=== PATIENT | male | born 1980 | race Caucasian/White ===

== ENCOUNTER 2022-03-14 14:03 | Outpatient (CLI) | payer OTHER, SELFPAY ==
--- NOTE | 2022-03-14 14:18 | ECG_ITS ---
Measurements Intervals [place] Rate: 79 P: 64 CA: 144 QRS: 52 QRSD: 90 T: 9 QT: 364 QTc: 418 Interpretive Statements SINUS RHYTHM BORDERLINE ST-T WAVE ABNORMALITY- INFERIOR LEADS BORDERLINE ECG NO PREVIOUS ECG AVAILABLE FOR COMPARISON Electronically Signed On 03-14-2022 14:32:36 CDT by Jovanni Smyth D.O.
--- NOTE | 2022-03-20 15:37 | WPDHOLTEREM ---
Holter/Event Monitor Holter/Event Monitor Date of procedure: 03/21/22 Holter/Event Procedure: 48 Hr Holter Monitor Indications: Syncope Conclusion: 1. 48 hour holter monitor on 03/14/22. 2. Underlying rhythm is sinus rhythm. HR range 48-167 bpm; average HR 85 bpm. HR at 167 bpm at 16:27. 3. There are 8 premature supraventricular complexes. No supraventricular tachycardia. 4. There are 2 premature ventricular complexes. No ventricular tachycardia. 5. No sinoatrial or atrioventricular blocks. No significant pauses greater than 2 seconds. 6. Patient reports symptom of face tingling and dizziness from 5:30 pm to 9:00 pm, and at 17:30 it demonstrates sinus rhythm at 85 bpm.
== END 2022-03-14 14:04 | disposition home or self-care (01) ==
LOC: ANHCARD 14:04
PROVIDERS: PCP Family Medicine; Visit Provider Nurse Practitioner Family
DX: R55 Syncope and collapse (principal); R53.83 Other fatigue; R94.31 Abnormal electrocardiogram [ECG] [EKG]
CPT/HCPCS: 93005; 93225; 93226

== ENCOUNTER 2022-03-28 09:25 | Outpatient (CLI) | payer OTHER, SELFPAY ==
[2022-03-28 09:50] LABS: Basophils Absolute Auto 0.1 K/mm3 (0.0-0.1); Basophils Percent Auto 0.8 % (0.2-1.2); Eosinophils Absolute Auto 0.1 K/mm3 (0-0.3); Eosinophils Percent Auto 2.1 % (0-4.4); Immature Granulocyte Absolute 0.01 K/mm3 (0.00-0.031); Immature Granulocyte Percent A 0.2 % (0-0.5); Lymphocytes Absolute Auto 2.31 K/mm3 (0.9-3.2); Lymphocytes Percent Auto 36.4 % (18.3-44.2); Mean Corpuscular HGB Conc 35.6 g/dl (32-36); Mean Corpuscular Hemoglobin 30.1 pg (26-34); Mean Corpuscular Volume 84.6 fl (80-100); Mean Platelet Volume 9.9 fl (7.4-10.4); Monocytes Absolute Auto 0.5 K/mm3 (0.1-0.6); Monocytes Percent Auto 7.7 % (2.6-8.5); Neutrophils Absolute Auto 3.4 K/mm3 (1.3-6.7); Neutrophils Percent Auto 52.8 % (45.5-73.1); Platelet Count Result 249 k/mm3 (150-375); Red Blood Count 5.32 M/mm3 (4.6-6.20); Red Cell Distribution Width 12.5 % (11.5-14.5); White Blood Count 6.3 K/mm3 (4.5-10.0)
[2022-03-28 10:06] LABS: Rheumatoid Factor < 8.6 IU/ML (<12)
[2022-03-28 10:08] LABS: Anion Gap 13 mmol/L (8-16); Blood Urea Nitrogen 19 mg/dL (9-20); CRP < 0.5 mg/dL (<1.0); Calcium 9.6 mg/dL (8.4-10.2); Carbon Dioxide 28 mmol/L (22-30); Chloride 99 mmol/L (98-107); Estimated Glomerular Filt Rate > 60; Glucose 100 mg/dL (65-110); Magnesium 2.2 mg/dL (1.6-2.3); Potassium 3.9 mmol/L (3.4-5.0); Sodium 140 mmol/L (137-145)
[2022-03-28 10:52] LABS: Erythrocyte Sedimentation Rate 14 mm/hr (0-20)
== END 2022-03-28 09:26 | disposition home or self-care (01) ==
LOC: ANHLAB 09:26
PROVIDERS: PCP Family Medicine; Visit Provider Nurse Practitioner Family
DX: R53.83 Other fatigue (principal); M25.50 Pain in unspecified joint
CPT/HCPCS: 36415; 80048; 83735; 84443; 85025; 85652; 86038; 86140; 86430

== ENCOUNTER 2022-03-29 10:07 | Outpatient (CLI) | payer OTHER, SELFPAY ==
--- NOTE | ~2022-03-29 | XR_ITS ---
XR hip RT min 2V DATE: 03/29/2022 10:53 INDICATION: Right hip pain TECHNIQUE: AP and lateral views COMPARISON: None FINDINGS: No fracture or dislocation, avascular necrosis or bone destruction of the right hip. The pu bic symphysis and right sacroiliac joint appear normal. Right hip joint space is well preserved. IMPRESSION: Negative right hip Reviewed, dictated and finalized at location B. TAL FORENSIC ANALYST IMPRESSION: Negative right hip
--- NOTE | ~2022-03-29 | XR_ITS ---
EXAMINATION: XR lumbar spine 2-3V DATE: 03/29/2022 10:53 INDICATION: Low back pain TECHNIQUE: Anteroposterior and lateral views of the lumbar spine, and cone-down lateral view of the l umbosacral junction were obtained. COMPARISON: None. FINDINGS: Bone alignment is normal. There is no fracture. The vertebral body heights are normal. Ther e is mild facet joint osteoarthritis of the lower lumbar spine. The intervertebral disc space heights are maintained. Phleboliths are noted in the pelvis. The bowel gas pattern is normal. IMPRESSION: 1. Mild lumbar spondylosis without acute findings. Reviewed, dictated and finalized at location F. TOOLS REPAIRER
--- NOTE | ~2022-03-29 | XR_ITS ---
EXAMINATION: XR hand BI arthritis min 3V DATE: 03/29/2022 10:53 INDICATION: Pain in unspecified hand. TECHNIQUE: 4 views of right hand and 4 views of left hand on a total of 7 radiographs were obtained. COMPARISON: None. FINDINGS: RIGHT HAND: Bone alignment is normal. No fracture. There is mild osteoarthritis of third metacarpopha langeal joint and second and third distal interphalangeal joints. LEFT HAND: Bone alignment is normal. No fracture. There is mild osteoarthritis of first interphalange al joint. IMPRESSION: 1. Mild polyarticular osteoarthritis. Reviewed, dictated and finalized at location A. NG CAR CONDUCTOR
== END 2022-03-29 10:08 | disposition home or self-care (01) ==
PROVIDERS: PCP Family Medicine; Visit Provider Nurse Practitioner Family
DX: M25.559 Pain in unspecified hip (principal); M19.041 Primary osteoarthritis, right hand; M19.042 Primary osteoarthritis, left hand; M47.896 Other spondylosis, lumbar region
CPT/HCPCS: 72100; 73130; 73502

== ENCOUNTER 2022-12-04 08:06 | Outpatient (CLI) | payer OTHER, SELFPAY ==
[2022-12-04 08:29] LABS: Basophils Percent Auto 0.8 % (0.2-1.2); Eosinophils Absolute Auto 0.1 K/mm3 (0-0.3); Eosinophils Percent Auto 1.9 % (0-4.4); Hematocrit 42.3 % (42.0-52.0); Hemoglobin 14.4 g/dL (14.0-18.0); Immature Granulocyte Absolute 0.01 K/mm3 (0.00-0.031); Immature Granulocyte Percent A 0.2 % (0-0.5); Lymphocytes Absolute Auto 2.18 K/mm3 (0.9-3.2); Lymphocytes Percent Auto 41.6 % (18.3-44.2); Mean Corpuscular Hemoglobin 29.9 pg (26-34); Mean Corpuscular Volume 87.9 fl (80-100); Mean Platelet Volume 9.6 fl (7.4-10.4); Monocytes Absolute Auto 0.3 K/mm3 (0.1-0.6); Monocytes Percent Auto 6.3 % (2.6-8.5); Neutrophils Absolute Auto 2.6 K/mm3 (1.3-6.7); Neutrophils Percent Auto 49.2 % (45.5-73.1); Platelet Count Result 206 k/mm3 (150-375); Red Blood Count 4.81 M/mm3 (4.6-6.20); Red Cell Distribution Width 12.6 % (11.5-14.5); White Blood Count 5.2 K/mm3 (4.5-10.0)
[2022-12-04 09:52] LABS: Alanine Aminotransferase 36 U/L (6-50); Albumin Level 4.6 g/dL (3.5-5.1); Alkaline Phosphatase 74 U/L (38-126); Anion Gap 8 mmol/L (8-16); Aspartate Amino Transferase 30 U/L (17-59); Bilirubin,Total 0.7 mg/dL (0.2-1.3); Blood Urea Nitrogen 15 mg/dL (9-20); Calcium 9.1 mg/dL (8.4-10.2); Carbon Dioxide 28 mmol/L (22-30); Chloride 103 mmol/L (98-107); Cholesterol 208 mg/dL (0-200); Estimated Glomerular Filt Rate > 60; Glucose 101 mg/dL (65-110); HDL Direct 36 mg/dL; Potassium 3.6 mmol/L (3.4-5.0); Sodium 139 mmol/L (137-145); Triglycerides 127 mg/dL (<150)
[2022-12-04 10:04] LABS: LDL Cholesterol Direct 117 mg/dL
[2022-12-04 10:23] LABS: Prostate Specific Antigen 0.4 ng/mL (< OR = 4.0)
[2022-12-07 17:27] LABS: Testosterone Free 49.9 pg/mL (35.0-155.0); Testosterone Total 299 ng/dL (250-1100)
[2022-12-07 22:23] LABS: Anti Cyclic Citrullinated Pept <16 Units (<20)
== END 2022-12-04 08:07 | disposition home or self-care (01) ==
PROVIDERS: PCP Family Medicine; Visit Provider Internal Medicine
DX: L40.50 Arthropathic psoriasis, unspecified (principal); L40.9 Psoriasis, unspecified; M19.90 Unspecified osteoarthritis, unspecified site; M25.551 Pain in right hip; M25.552 Pain in left hip; M54.9 Dorsalgia, unspecified; F41.9 Anxiety disorder, unspecified; R68.82 Decreased libido; Z12.5 Encounter for screening for malignant neoplasm of prostate; Z13.220 Encounter for screening for lipoid disorders
CPT/HCPCS: 36415; 80053; 80061; 84153; 84402; 84403; 84443; 85025; 86200; 86481; 86706; 86803; 87340; G0103

== ENCOUNTER 2022-12-05 07:29 | Outpatient (CLI) | payer OTHER, SELFPAY | END 2022-12-05 07:30 | disposition home or self-care (01) | LOC: ANHIMG 07:31 | PROVIDERS: PCP Family Medicine; Visit Provider Family Medicine | DX: M25.561 Pain in right knee (principal) | CPT/HCPCS: 73564 ==

== ENCOUNTER 2023-01-01 07:41 | Outpatient (CLI) | payer OTHER, SELFPAY ==
[2023-01-01 08:06] LABS: Basophils Percent Auto 0.6 % (0.2-1.2); Eosinophils Absolute Auto 0.2 K/mm3 (0-0.3); Hematocrit 42.9 % (42.0-52.0); Hemoglobin 14.4 g/dL (14.0-18.0); Immature Granulocyte Absolute 0.02 K/mm3 (0.00-0.031); Immature Granulocyte Percent A 0.4 % (0-0.5); Lymphocytes Absolute Auto 2.11 K/mm3 (0.9-3.2); Lymphocytes Percent Auto 39.4 % (18.3-44.2); Mean Corpuscular HGB Conc 33.6 g/dl (32-36); Mean Corpuscular Hemoglobin 30.3 pg (26-34); Mean Corpuscular Volume 90.1 fl (80-100); Mean Platelet Volume 9.9 fl (7.4-10.4); Monocytes Absolute Auto 0.4 K/mm3 (0.1-0.6); Monocytes Percent Auto 7.3 % (2.6-8.5); Neutrophils Absolute Auto 2.7 K/mm3 (1.3-6.7); Neutrophils Percent Auto 49.3 % (45.5-73.1); Platelet Count Result 205 k/mm3 (150-375); Red Blood Count 4.76 M/mm3 (4.6-6.20); Red Cell Distribution Width 12.6 % (11.5-14.5); White Blood Count 5.4 K/mm3 (4.5-10.0)
[2023-01-01 08:27] LABS: Anion Gap 5 mmol/L (8-16); Blood Urea Nitrogen 13 mg/dL (9-20); Calcium 8.9 mg/dL (8.4-10.2); Carbon Dioxide 29 mmol/L (22-30); Chloride 103 mmol/L (98-107); Estimated Glomerular Filt Rate > 60; Glucose 76 mg/dL (65-110); Potassium 3.8 mmol/L (3.4-5.0); Sodium 137 mmol/L (137-145); Uric Acid 5.8 mg/dL (3.5-8.5)
[2023-01-01 08:57] LABS: Erythrocyte Sedimentation Rate 12 mm/hr (0-20)
== END 2023-01-01 07:42 | disposition home or self-care (01) ==
LOC: ANHLAB 07:42
PROVIDERS: PCP Family Medicine; Visit Provider Family Medicine
DX: M25.469 Effusion, unspecified knee (principal); L40.50 Arthropathic psoriasis, unspecified
CPT/HCPCS: 36415; 80048; 84550; 85025; 85652

== ENCOUNTER 2023-05-14 10:29 | Outpatient (CLI) | payer OTHER, SELFPAY ==
--- NOTE | ~2023-05-14 | XR_ITS ---
Right Knee Technique: AP, lateral, and sunrise views were obtained. Clinical History: Pain Findings: No fracture or dislocation is seen. Osseous alignment is anatomic. Joint spaces are preserv ed without degenerative or erosive change. Soft tissues are unremarkable. No joint effusion is seen. Impression: Unremarkable right knee radiographs. Reviewed, dictated and finalized at location . ICAL OFFICE TECHNICIAN Impression: Unremarkable right knee radiographs.
== END 2023-05-14 10:30 | disposition home or self-care (01) ==
PROVIDERS: PCP Family Medicine; Visit Provider Orthopaedic Surgery
DX: M25.469 Effusion, unspecified knee (principal); M25.561 Pain in right knee
CPT/HCPCS: 73564

== ENCOUNTER 2023-06-17 07:30 | Outpatient (CLI) | payer OTHER, SELFPAY ==
[2023-06-17 07:54] LABS: Hemoglobin 15.1 g/dL (14.0-18.0)
[2023-06-21 17:56] LABS: Testosterone Free 98.1 pg/mL (35.0-155.0); Testosterone Total 467 ng/dL (250-1100)
== END 2023-06-17 07:31 | disposition home or self-care (01) ==
LOC: ANHLAB 07:31
PROVIDERS: PCP Family Medicine; Visit Provider Family Medicine
DX: R79.89 Other specified abnormal findings of blood chemistry (principal)
CPT/HCPCS: 36415; 84402; 84403; 85014; 85018

== ENCOUNTER 2023-11-18 11:50 | Outpatient (CLI) | payer OTHER, SELFPAY ==
[2023-11-23 10:54] LABS: Testosterone Free 28.6 pg/mL (35.0-155.0); Testosterone Total 205 ng/dL (250-1100)
== END 2023-11-18 11:51 | disposition home or self-care (01) ==
LOC: ANHLAB 11:51
PROVIDERS: PCP Family Medicine; Visit Provider Nurse Practitioner Family
DX: R79.89 Other specified abnormal findings of blood chemistry (principal)
CPT/HCPCS: 36415; 84402; 84403

== ENCOUNTER 2023-12-23 08:07 | Outpatient (CLI) | payer OTHER, SELFPAY ==
[2023-12-23 08:27] LABS: Hematocrit 44.1 % (42.0-52.0); Hemoglobin 15.4 g/dL (14.0-18.0)
[2023-12-28 19:29] LABS: Testosterone Free 193.5 pg/mL (35.0-155.0); Testosterone Total 1027 ng/dL (250-1100)
== END 2023-12-23 08:08 | disposition home or self-care (01) ==
PROVIDERS: PCP Family Medicine; Visit Provider Nurse Practitioner Family
DX: R79.89 Other specified abnormal findings of blood chemistry (principal)
CPT/HCPCS: 36415; 84402; 84403; 85014; 85018

== ENCOUNTER 2024-02-03 12:33 | Outpatient (CLI) | payer OTHER, SELFPAY | END 2024-02-03 12:34 | disposition home or self-care (01) | LOC: ANHIMG 12:34 | PROVIDERS: PCP Family Medicine; Visit Provider Physician Assistant Medical | DX: M79.671 Pain in right foot (principal); M79.672 Pain in left foot; G89.29 Other chronic pain; R79.89 Other specified abnormal findings of blood chemistry; L40.50 Arthropathic psoriasis, unspecified; Z12.5 Encounter for screening for malignant neoplasm of prostate | CPT/HCPCS: 73630 ==

== ENCOUNTER 2024-07-02 | Observation (INO) | payer OTHER, SELFPAY ==
[2024-07-02] VITALS (19 sets, daily range): BP systolic 114–138; BP diastolic 59–94; PULSE 81–203; RESP 15–30; TEMP 36.6–37.2; O2SAT 97–100; BMI 24.6
--- NOTE | 2024-07-02 | ECHO_ITS ---
Patient Info Name: Tio Martínez Age: 44 years : 1980 Gender: Male Ht: 69 in Wt: 167 lbs BSA: 1.93 m2 HR: 90 bpm BP: 125 / 88 mmHg Technical Quality: Fair Exam Date: 07/02/2024 8:41 AM Exam Location: Echo Lab Patient Status: Outpatient Admit Date: 07/02/2024 Staff Ordering Physician: Holden Menjivar APRN Guide Dog Instructor: Dhruv Conroy RDCS Attending Provider: Lanie Vicente MD Referring Physician: Otto NAVARRO; Exam Type: CA echo doppler color flow Study Info Indications - AFIB RVR Complete two-dimensional, color flow and Doppler transthoracic echocardiogram is performed. Summary 1. Complete two-dimensional, color flow and Doppler transthoracic echocardiogram is performed. 2. There is normal biventricular size and systolic function. 3. There is no significant valvular disease. 4. There is normal biatrial size. Left Ventricle The left ventricle is normal in size and systolic function. The left ventricular ejection fraction is visually estimated to be 60-65%. Right Ventricle The right ventricle is normal in size and systolic function. Left Atria The left atrium is normal size. Right Atria The right atrium is normal size. Atrial Septum The atrial septum visually appears intact. Aortic Valve The aortic valve is probably trileaflet and opens well. There is no aortic regurgitation. Pulmonic Valve The pulmonic valve is grossly normal. There is no color Doppler evidence of pulmonic valve regurgitation. Mitral Valve The mitral valve is normal. There is no mitral regurgitation. Tricuspid Valve The tricuspid valve is normal. There is no tricuspid regurgitation. Pericardium/Pleural Pericardium is normal in appearance with no evidence for significant pericardial effusion. Inferior Vena Cava Normal inferior vena cava with >50% collapse upon inspiration consistent with normal right atrial pressure, 3 mmHg. Aorta The aortic root at the level of the sinus of Valsalva measures 3.2 cm in diameter. Left Ventricular Outflow Tract Name Value Normal LVOT 2D LVOT Diameter 1.8 cm LVOT Doppler LVOT Peak Gradient 4 mmHg LVOT Mean Gradient 3 mmHg LVOT VTI 22 cm LVOT VTI/AV VTI Ratio 1.0 LVOT Stroke Volume 56 ml LVOT CO 11.7 l/min LVOT CI 6.1 l/min/m2 Pulmonic Valve Name Value Normal RVOT Doppler RVOT Peak Gradient 2 mmHg PV Doppler PV Peak Gradient 3 mmHg Mitral Valve Name Value Normal MV Doppler MV Decel Powell 335 cm/s2 MV PHT 47 ms MV Area (PHT) 4.7 cm2 4.0-5.0 MV Diastolic Function MV E Peak Velocity 54 cm/s MV A Peak Velocity 56 cm/s MV E/A 1.0 MV Decel Time 160 ms MV Annular TDI MV E/e' (Septal) 5.6 <=8.0 MV E/e' (Lateral) 3.5 <=8.0 MV E/e' (Average) 4.5 Tricuspid Valve Name Value Normal Estimated PAP/RSVP RA Pressure 3 mmHg <=5 Aorta Name Value Normal Ascending Aorta Ao Root Diameter (MM) 2.9 cm Ao Root Diam Index (MM) 1.5 cm/m2 Aortic Valve Name Value Normal AV Doppler AV Peak Velocity 126 cm/s AV Peak Gradient 6 mmHg AV Mean Gradient 4 mmHg AV VTI 23 cm AV Area (Cont Eq VTI) 2.5 cm2 >=3.0 AV Area (Cont Eq Yared) 2.0 cm2 AV Regurgitation 2D LVOT Area 2.6 cm2 Ventricles Name Value Normal LV Dimensions 2D/MM IVS Diastolic Thickness (2D) 1.3 cm 0.6-1.0 LVID Diastole (2D) 3.6 cm 4.2-5.8 LVIW Diastolic Thickness (2D) 1.1 cm 0.6-1.0 LVID Systole (2D) 2.5 cm 2.5-4.0 LVOT Diameter 1.8 cm LV Mass (2D Cubed) 145.28 g 88.00-224.00 LV Mass Index (2D Cubed) 75 g/m2 49-115 Relative Wall Thickness (2D) 0.61 LV Fractional Shortening/Ejection Fraction 2D/MM LV Fractional Shortening (2D) 30 % 25-43 LV EF (2D Teicholz) 58 % 52-72 LV Diastolic Volume (4C MOD) 60 ml LV EF (4C MOD) 49 % LV Diastolic Volume (2C MOD) 66 ml LV EF (2C MOD) 44 % LV Diastolic Volume (BP MOD) 63 ml 62-150 LV Diastolic Volume Index (BP MOD) 33 ml/m2 34-74 LV Systolic Volume (BP MOD) 35 ml 21-61 LV Systolic Volume Index (BP MOD) 18 ml/m2 11-31 LV EF (BP MOD) 45 % 52-72 LV Diastolic Length (4C) 7.7 cm LV Systolic Length (4C) 6.5 cm LV Stroke Volume (4C MOD) 29 ml Atria Name Value Normal LA Dimensions LA Dimension (MM) 3.6 cm 3.0-4.1 LA Volume (4C A-L) 26 ml LA Volume (BP A-L) 31 ml RA Dimensions RA Area (4C) 11.7 cm2 <=18.0 Report Signatures
--- NOTE | 2024-07-02 00:06 | ECG_ITS ---
Test Date: 2024-07-02 00:06:58 Measurements Intervals [place] Rate: 214 P: 0 CO: 0 QRS: 38 QRSD: 89 T: -85 QT: 186 QTc: 351 Interpretive Statements ATRIAL FIBRILLATION WITH RAPID VENTRICULAR RESPONSE MARKED ST DEPRESSION, CONSIDER SUBENDOCARDIAL INJURY OR RATE RELATED BASELINE ARTIFACT- I, III, AVL, AVF ABNORMAL ECG No previous ECG available for comparison Electronically Signed On 07-02-2024 05:49:42 RETAIL PRODUCT DEMO SPECIALIST by Jovanni Smyth D.O.
[2024-07-02] MEDS: dilTIAZem HCl INJ 25 MG/5 ML VIAL 10 MG IV PUSH (00:07)
[2024-07-02] MEDS: dilTIAZem HCl INJ 25 MG/5 ML VIAL 15 MG IV PUSH (00:10)
--- NOTE | 2024-07-02 00:13 | ED.ARRPALP ---
HPI - Arrhythmia/Palpitations General Chief Complaint: Arrhythmia/Palpitations Stated Complaint: CHEST DISCOMFORT, IN SVT Time Seen by Provider: 07/02/24 00:13 Source: patient Mode of arrival: EMS Limitations: no limitations History of Present Illness HPI narrative: This is a 44-year-old male who presents to the ED via EMS for chief complaint of heart palpitations beginning just prior to arrival around 11pm. Patient states that he just finished eating dinner and was eating ice cream when he started to feel uncomfortable racing heart. States that he has had panic attacks with anxiety in the past but this is much worse and feels different. Denies preceding illness. Denies chest pain. States he feels little dizzy but otherwise has been asymptomatic. Admits to cannabis use this evening, however denies alcohol or other substance use. 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 He does state that he used to be a heavier drinker in the past. Related Data Home Medications ?Medication ?Instructions ?Recorded ?Confirmed ?Last Taken ?Type acetaminophen 500 mg tablet 500 mg PO Q6H 09/11/22 07/02/24 Unknown History (Tylenol Extra Strength) Allergies Allergy/AdvReac Type Severity Reaction Status Date / Time No Known Allergies Allergy Verified 07/02/24 00:20 Review of Systems Review of Systems: All systems as dictated in HPI [facility] Past Medical History Medical History Back pain Bilateral hip pain BMI 24.0-24.9, adult Encounter for screening for other viral diseases Low libido Low testosterone in male Psoriatic arthritis Right ACL tear Right knee pain Scalp psoriasis Swelling of knee Surgical History Surgical History H/O elbow surgery H/O knee surgery Family History Family History Father Hypertension Hyperlipemia Malignant neoplasm of prostate Mother Cerebrovascular accident Skin cancer Social History Social History Smoking status: Former smoker Tobacco type: e-cigarettes/vaping Second hand tobacco smoke exposure: Yes Smoking end date: 05/13/12 Alcohol intake: former Substance use: never Substance use type: does not use Do You Feel Safe in your Home?: Yes Lack of Transportation: No Lack of Food: Never True Current Housing: I Have Housing Concerned About Future Housing: No Difficulty Paying Gas/Electric Bills: No Difficulty Paying for Meds: No Currently Unemployed: YES Education: High School Diploma/GED Difficulty w/ Childcare or Family Care: No Living arrangements: with family Occupation/Education: occupation 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 Gender identity (if verbalized by the patient): Male Exam Narrative: GENERAL: Appears uncomfortable. Answering questions appropriately HEAD: Normocephalic, atraumatic. EYES: PERRLA and EOMI. ENT: Nares clear, no rhinorrhea or epistaxis. Mucous membranes moist. Oropharynx without tonsillar hypertrophy exudate or other lesions. NECK: Supple. No adenopathy or masses. CHEST: No respiratory distress. Clear to auscultation. No wheezes rales or rhonchi HEART: Tachycardic. Regular rhythm.. No murmur heard. Normal peripheral pulses. ABDOMEN: Soft, nontender, nondistended, normal active bowel sounds. MSK: Normal range of motion. No edema. SKIN: Warm, dry, no rash. NEURO: Alert and oriented x4. No focal deficits. PSYCH: Normal mood and affect. Course Reevaluation(s) Reevaluation #1: Patient is feeling much better s/p cardioversion. He is amenable to being admitted to the hospital for observation Date: 07/02/24 Time: 01:32 Procedures Procedural Sedation Procedural Sedation #1: Procedural Sedation Date: 07/02/24 Procedural Sedation Time: 01:05 Procedure: Electrical cardioversion Provider Performed: sedation and procedure Informed Consent Obtained: yes Equipment in Room: bag and mask, capnography, secured entrance monitor, crash cart, oxygen, pulse oximeter and suction Plan for Sedation: moderate sedation ASA Class: I Mallampati Classification: class II NPO Status: last solid food (hours ago) Explanation to Patient/Family: Risk/Benefits/Alternatives and Pt/Family agreed with plan Pt. Educated on Procedural Sedation: Yes Re-evaluated immediately prior: Yes Preparation: secured entrance monitor applied, pulse oximeter, capnometry used, supplemental O2 applied, reversal agents at bedside, suction/airway equipment at bedside and IV secured IV Etomidate dose (mg): 8 Patient Tolerated Procedure: well and no complications Complications: none Total Sedation Time (min): 2 MDM - Arrhythmia/Palpitations MDM Narrative Medical decision making narrative: This is a 44-year-old male who presents to the ED for heart palpitations. He arrives via EMS with a heart rate of 200 and possible SVT so he was treated with vagal maneuvers, 6 mg of Adenocard, followed by 12 mg Adenocard with no success. Pressure is stable in the 150s. Patient was given 10 mg push followed by 15 mg push of diltiazem with decent response so diltiazem drip was started here in the ED. Patient continued to have heart rates climbing into the 160s, 170s. Pressure remains stable in the 130s, however he is is still quite symptomatic. He is feeling lightheaded and dizzy. Discussion with patient regarding continuing medical therapy versus synchronized cardioversion. We discussed that his medical history and history of present illness makes him a good candidate for cardioversion for new onset atrial fibrillation today. He was given 8 mg of etomidate for procedural sedation and then this successful electrical cardioversion at 100 rules. Repeat ECG shows sinus rhythm. Shared decision making regarding disposition. Patient feels comfortable being admitted for observation. He will be admitted to IMU after discussing case with hospitalist HORTICULTURAL FARM MANAGER. SATHISH?DS?-VASc Score for Atrial Fibrillation Stroke Risk from [email or web address] on 07/02/2024 All calculations should be rechecked by clinician prior to use RESULT SUMMARY: 0 points Stroke risk was 0.2% per year in >90,000 patients (the [place] Atrial Fibrillation Cohort Study) and 0.3% risk of stroke/TIA/systemic embolism. INPUTS: Age ?> 0 = <65 Sex ?> 0 = Male CHF history ?> 0 = No Hypertension history ?> 0 = No Stroke/TIA/thromboembolism history ?> 0 = No Vascular disease history (prior RI, peripheral artery disease, or aortic plaque) ?> 0 = No Diabetes history ?> 0 = No ECG Data EKG #1: ECG completion date: 07/02/24 ECG completion time: 00:06 Prior ECG tracings: not available for review Interpretation: Atrial fibrillation with RVR Rate 214 Narrow complex QRS EKG #2: ECG completion date: 07/02/24 ECG completion time: 01:19 Prior ECG tracings: not available for review Interpretation: Sinus tachycardia rate [address] deviations or signs of acute ischemia Discharge Plan Discharge Clinical Impression: Atrial fibrillation, new onset Patient Disposition: Still a Patient Condition: Stable Patient Language: French Prescriptions: No Action celecoxib [Celebrex] 200 mg capsule 200 mg PO BID Qty: 60 6RF acetaminophen [Tylenol Extra Strength] 500 mg tablet 500 mg PO Q6H duloxetine 60 mg capsule,delayed release(DR/EC) 60 mg PO DAILY Qty: 90 0RF trazodone 50 mg tablet See Rx Instructions .ROUTE .COMPLEX Qty: 90 3RF Dose Instruction: TAKE 1 TABLET BY MOUTH EVERY DAY AT BEDTIME NEEDED FOR INSOMNIA Rx Instructions: TAKE 1 TABLET BY MOUTH EVERY DAY AT BEDTIME NEEDED FOR INSOMNIA testosterone cypionate 200 mg/mL oil 150 mg IM WEEKLY Qty: 10 0RF Follow-up/Referrals: Donn Lindquist MD [Primary Care Provider] - Cardioversion Cardioversion Date of procedure: 07/02/24 Procedure: Electrical cardioversion Pre-op diagnosis: Atrial fibrillation Post-op diagnosis: Other (Normal sinus rhythm) Indications: Increasingly symptomatic, new onset atrial fibrillation Description of procedure: Synchronized cardioversion at 100 rules Sedation: 8 mg of etomidate AMG Billing for Cardioversion: Cardioversion
[2024-07-02] MEDS: dilTIAZem 100 MG/100 ML 100 MG/100 ML BAG IV CONT (00:16)
[2024-07-02] MEDS: SODIUM CHLORIDE 0.9% IV 1,000 ML 999 ML IV CONT ×2 (00:21→00:52)
--- OUTSIDE RECORDS SUMMARY | 2024-07-02 00:23 | XMS_ITS | Encounter Summary ---
Author Organization [employer] Address 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
--- OUTSIDE RECORDS SUMMARY | 2024-07-02 00:23 | XMS_ITS | Referral Summary ---
Author Organization [facility] [address] Address [address] [place] [id number] Care Team Providers Care Alarm Field Technician Name Role Phone Josh Lion MD Primary Care Provider [phone] Allergies No known active allergies Medications ibuprofen (ADVIL,MOTRIN) 200 mg tab/cap Take by mouth every 6 (six) hours as needed Active acetaminophen (TYLENOL) 500 mg tablet Take 500 mg by mouth every 6 (six) hours as needed Active melatonin 10 mg tablet Active protein supplement liquid Take by mouth Active doxylamine (UNISOM) 25 mg tablet Take 0.5 tablets (12.5 mg total) by mouth nightly as needed for sleep (anxiety) 30 tablet 11/20/2021 Active traZODone (DESYREL) 50 mg tabletIndicatio ns:Primary insomnia TAKE 1 TABLET(50 MG) BY MOUTH EVERY NIGHT NEEDED FOR SLEEP 30 tablet 2 12/27/2021 Active LORazepam (ATIVAN) 0.5 mg tabletIndicatio ns:Panic disorder Take 1 tablet (0.5 mg total) by mouth 3 (three) times a day as needed for anxiety (panic) 10 tablet 01/22/2022 Active naproxen (ALEVE) 220 mg tablet Take by mouth 2 (two) times a day with meals Active escitalopram (LEXAPRO) 10 mg tabletIndicatio ns:Panic disorder TAKE 1 TABLET(10 MG) BY MOUTH DAILY 30 tablet 3 05/29/2022 Active Active Problems Problem Noted Date Diagnosed Date Encounter to establish care 05/22/2021 Assessment & Plan (05/27/2021 12:32 PM CUB REPORTER): A initial well visit to establish care has been performed today. Tio Martínez is up to date on screening tests. He is in need of None- no screening indicated at this time- these have been ordered. He is not up to date on needed preventative vaccinations; He is in need of Covid-19 (2 of 2). These have been ordered/arranged unless otherwise indicated. Trazodone trial Hold doxylamine, diphenhydramine Continue melatonin Labs as ordered Keflex course for paronychia; see handout as well Paronychia of index finger 05/22/2021 Panic disorder Assessment & Plan (02/24/2022 2:30 PM CDT): Will plan to get set up with counselor Continuing Lexapro, PRN Ativan-- I am hopeful to decrease the need for the benzo (Ativan) Trazodone continues as well Assessment & Plan (12/22/2021 10:56 AM CDT): Recommended trial of Lexapro Will continue PRN ativan, as long as usage does not increase markedly Continuing trazodone. With it and lexapro, there is a low risk of serotonin syndrome, we will watch for. Immunizations Immunization Administration Dates Next Due Influenza, Quadrivalent, Spl it, Intramuscular 03/28/2018 Influenza, Unspecified 02/19/2022(Deferr ed: Patient Refused),06/19/2021(Deferred: Patient Refused),05/13/2021(Deferred: Patient Refused),05/13/2020(Deferred: Patient Refused) Tdap 2018 Social History Tobacco Use Types Packs/Day Years Used Date Smoking Tobacco: Former Cigarettes 1 2019 Vaping Smokeless Tobacco: Never Tobacco Cessation:Counseling Given: Yes Humiliation, Afraid, Rape, and Kick questionnair e Answer Date Recorded Within the last year, have y ou been afraid of your partner or ex-partner? No 05/22/2021 Within the last year, have y ou been humiliated or emotionally abused in other ways by your partner or ex-partner? No Within the last year, have y ou been kicked, hit, slapped, or otherwise physically hurt by your partner or ex-partner? No 05/22/2021 Within the last year, have y ou been raped or forced to have any kind of sexual activity by your partner or ex-partner? No 05/22/2021 AUDIT-C Answer Date Recorded Frequency of Alcohol Consumption Not on file 11/20/2021 Q2: How many drinks containi ng alcohol do you have on a typical day when you are drinking? Patient does not drink Frequency of Binge Drinking Not on file 11/10 PHQ-2 Answer Date Recorded PHQ-2 Total Score (If total score is 3 or more points, staff should administer the PHQ-9) 0 02/19/2022 [facility] - Occupational Stress Questionnaire Answer Date Recorded Do you feel stress - tense, restless, nervous, or anxious, or unable to sleep at night because your mind is troubled all the time - these days? Only a little 05/22/2021 Exercise Vital Sign Answer Date Recorde d On average, how many days pe r week do you engage in moderate to strenuous exercise (like a brisk walk)? 0 days Minutes of Exercise per Session Not on file 05/22/2021 Personal Safety Answer Date Recorded Getting School Help Needed Not on file 07/13 Education Answer Date Recorded What is the highest level of school you have completed or the highest degree you have received? 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) Not on file Not on file Not on file Last Filed Vital Signs Vital Sign Reading Time Taken Comments Blood Pressure 116/76 02/19/2022 10:17 AM CDT Pulse 75 02/19/2022 10:17 AM CDT Temperature 36.9 C (98.4 F) 02/19/2022 10:17 AM CDT Respiratory Rate 18 02/19/2022 10:17 AM CDT Oxygen Saturation 99% 02/19/2022 10:17 AM CDT Inhaled Oxygen Concentration - - Weight 75.8 kg (167 lb) 02/19/2022 10:17 AM CDT Height 180.3 cm (5' 11 ) 02/19/2022 10:17 AM CDT Body Mass Index 23.29 02/19/2022 10:17 AM CDT Plan of Treatment Not on file Insurance Care Teams Alarm Field Technician Relationship Specialty Start Date End Date Josh Lion MD PCP - General Family Medicine 05/22/21
--- OUTSIDE RECORDS SUMMARY | 2024-07-02 00:23 | XMS_ITS | Clinical Summary ---
Author Organization [facility] [address] Address [address] [place] [id number] Care Team Providers Care Media Relations Coordinator Name Role Phone Josh Lion MD Primary Care Provider [phone] Allergies No known active allergies Medications ibuprofen [...] 05/22/2021 Assessment & Plan (05/27/2021 12:32 PM QUALITY ASSURANCE LAB TECHNICIAN): A initial well visit to establish care [...] Refused),05/13/2021(Deferred: Patient Refused),05/13/2020(Deferred: Patient Refused) Tdap 2018 Surgical History Surgery Date Site/Laterality Comments KNEE SURGERY 05/13/2009 - 05/12/2010 Left ACL, MCL, tibial fracture ORIF RADIAL HEAD / NECK FRACTURE 05/13/2007 - 05/12/2008 Left DENTAL SURGERY 05/13/2020 - 05/12/2021 implants Medical History Medical History Date Comments Panic disorder Insomnia Psoriasis Family History Medical History Relation Name Comments Hypertension Father No Known Problems Half-Brother 1 No Known Problems Half-Brother 2 Bipolar disorder Half-Sister No Known Problems Maternal Grandfather No Known Problems Maternal Grandmother Basal cell carcinoma Mother Stroke Mother No Known Problems Paternal Grandfather No Known Problems Paternal Grandmother Relation Name Status Comments Father Alive Half-Brother 1 Alive Half-Brother 2 Alive Half-Sister Alive Maternal Grandfather Maternal Grandmother Mother Paternal Grandfather Paternal Grandmother Social History Tobacco Use Types Packs/Day Years Used Date Smoking Tobacco: Former Cigarettes 2019 Vaping Smokeless Tobacco: Never Tobacco Cessation:Counseling [...] staff should administer the PHQ-9) 0 02/19/2022 [facility] Occupational Stress Questionnaire Answer Date Recorded [...] on file Legal Sex Male 8:52 PM QUALITY ASSURANCE LAB TECHNICIAN Gender Identity Not on file Sexual Orientation Straight 05/22/2021 11 :53 AM QUALITY ASSURANCE LAB TECHNICIAN 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) Not on file Not on file Not on file Obstetrics History Last Filed Vital Signs Vital Sign Reading [...] 02/19/2022 10:17 AM CDT Plan of Treatment Health Maintenance Due Date Last Done Comments Hepatitis C Screening 1981 Varicella Vaccines (1 of 2 - 13+ 2-dose series) 1994 Hepatitis B Screening 1999 Regular Well Visit/Exam 18-64 05/22/2022 05/22/2021 Depression Screening 02/19/2023 02/19/2022, 12/18/2021, 11/20/2021, Additional history exists Covid-19 Vaccine ( season) 2024 08/15/2020 Influenza Vaccine (#1) 2024 03/28/2018 DTaP/Tdap/Td Vaccine (2 - Td or Tdap) 2028 2018 HPV Vaccines Aged Out No longer eligi ble based on patient's age to complete this topic Pneumococcal vaccine <65 Aged Out No longer eligible based on patient's age to complete this topic Insurance Care Teams Media Relations Coordinator Relationship Specialty Start Date End Date Josh Lion MD PCP - General Family Medicine 05/22/21
--- OUTSIDE RECORDS SUMMARY | 2024-07-02 00:23 | XMS_ITS | Clinical Summary ---
Author Organization [facility] Address [address] 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
[2024-07-02 00:28] LABS: Basophils Absolute Auto 0.1 K/mm3 (0.0-0.1); Basophils Percent Auto 1.1 % (0.2-1.2); Eosinophils Absolute Auto 0.2 K/mm3 (0-0.3); Eosinophils Percent Auto 1.7 % (0-4.4); Hematocrit 46.1 % (42.0-52.0); Hemoglobin 16.4 g/dL (14.0-18.0); Immature Granulocyte Absolute 0.02 K/mm3 (0.00-0.031); Immature Granulocyte Percent A 0.2 % (0-0.5); Lymphocytes Absolute Auto 4.67 K/mm3 (0.9-3.2); Lymphocytes Percent Auto 49.5 % (18.3-44.2); Mean Corpuscular HGB Conc 35.6 g/dl (32-36); Mean Corpuscular Hemoglobin 30.4 pg (26-34); Mean Corpuscular Volume 85.4 fl (80-100); Mean Platelet Volume 10.1 fl (7.4-10.4); Monocytes Absolute Auto 0.6 K/mm3 (0.1-0.6); Monocytes Percent Auto 6.8 % (2.6-8.5); Neutrophils Absolute Auto 3.9 K/mm3 (1.3-6.7); Neutrophils Percent Auto 40.7 % (45.5-73.1); Platelet Count Result 301 k/mm3 (150-375); Red Cell Distribution Width 12.4 % (11.5-14.5); White Blood Count 9.4 K/mm3 (4.5-10.0)
[2024-07-02 00:38] LABS: Alanine Aminotransferase 47 U/L (6-50); Albumin Level 4.8 g/dL (3.5-5.1); Alkaline Phosphatase 107 U/L (38-126); Anion Gap 11 mmol/L (4-12); Aspartate Amino Transferase 39 U/L (17-59); Bilirubin,Total 0.7 mg/dL (0.2-1.3); Blood Urea Nitrogen 18 mg/dL (9-20); Calcium 9.8 mg/dL (8.4-10.2); Carbon Dioxide 26 mmol/L (22-30); Chloride 100 mmol/L (98-107); Estimated CRCL calculation 95 ml/min; Estimated Glomerular Filt Rate > 60; Glucose 126 mg/dL (65-110); Potassium 3.3 mmol/L (3.4-5.0); Sodium 137 mmol/L (137-145)
[2024-07-02] MEDS: POTASSIUM CHLORIDE 20 MEQ ER TABLET 40 MEQ PO (00:49)
--- NOTE | 2024-07-02 01:11 | ECG_ITS ---
Test Date: 2024-07-02 00:18:58 Measurements Intervals [place] Rate: 134 P: 0 SC: 0 QRS: 43 QRSD: 90 T: -30 QT: 292 QTc: 437 Interpretive Statements ATRIAL FIBRILLATION WITH RAPID VENTRICULAR RESPONSE ST-T WAVE ABNORMALITY IN INFERIOR LEADS- CONSIDER ISCHEMIA BASELINE ARTIFACT- I, III, AVL ABNORMAL ECG Compared to ECG 07/02/2024 00:06:58 HEART RATE HAS DECREASED Electronically Signed On 07-02-2024 06:02:54 NEEDLE MOLDER by Jovanni Smyth D.O.
--- NOTE | 2024-07-02 01:21 | PC.NURSE ---
0100: Consent obtained from patient to preform cardioversion. Patient is A&Ox4. 0103: Time out done with KOMAL Melgar and EDP Dr. Harley for Cardioversion 0104: 8mg Etomidate given IVP. Etomidate taken from RSI box which is at bedside. 0105: Converted at 100J 0106: Patient in Sinus Tach at 116 bpm
--- NOTE | 2024-07-02 03:31 | ADMGEN ---
This patient, Tio Martínez, was admitted to IMU Room 206-01. Patient/family oriented to hospital policies and general routines including ID bracelet, bed and alarms, visiting hours, pain management, procedures, bathroom and other care routines, personal items, smoking policy, room service/diet, and visiting hours. Information on how to activate the Rapid Response Team has been discussed. Patient/Family are encouraged to report perceived risks to care and to ask questions if they do not understand what they are told or what they should do.
--- NOTE | 2024-07-02 03:33 | PM.IMHP ---
H&P: HPI History of Present Illness Date/Time: 07/02/24 03:33 Chief Complaint: Palpitations, dizziness, A-fib RVR Narrative: This is a 44-year-old male patient with a history of psoriatic arthritis who is admitted to the hospital due to new onset atrial fibrillation with RVR in the 200s. Patient was eating some food before bed around 11:00 p.m. when he suddenly had abrupt onset palpitations tachycardia resulted in lightheadedness and dizziness. EMS was called. EMS believed patient was in SVT so they administered 6 mg of adenosine with no significant change followed by 12 mg of adenosine again with no sustained change. In the emergency department EKG showed AFib RVR with a rate of 214. He received IV diltiazem and was initiated on a drip that was titrated up to 10 mg. His heart rate remained 160-180 so decision was made to sedate with etomidate 8 mg and provide synchronized cardioversion. Rhythm converted to sinus tachycardia after cardioversion and heart rate continued to improve or he is no longer tachycardic. Patient denies any symptoms. Patient no longer smokes cigarettes but he does use vape. He no longer drinks alcohol but he does take cannabis every night for pain anxiety and help him sleep. Patient reports he did not utilize more than usual tonight. He does state that occasionally cannabis use will cause his heart rate to be elevated but not irregular cause palpitations or symptoms like he experienced tonight. Labs obtained in the emergency department revealed a potassium level of 3.3 which was supplemented oral and IV. He has normal renal function. Magnesium was 2.0 but we ordered 1 g IV magnesium to help the potassium absorb. We will redraw labs at 9:00 a.m.. Patient will also have Cardiology consult and echocardiogram today. Review of Systems Review of Systems: All systems reviewed & are unremarkable except as noted in HPI and below [facility] Past Medical History Medical History Swelling of knee Low testosterone in male Right ACL tear Low libido Right knee pain Encounter for screening for other viral diseases Bilateral hip pain Back pain Scalp psoriasis Psoriatic arthritis BMI 24.0-24.9, adult Surgical History Surgical History H/O elbow surgery H/O knee surgery Family History Family History Father Hypertension Hyperlipemia Malignant neoplasm of prostate Mother Cerebrovascular accident Skin cancer Social History Social History Smoking packs per day: 1 Smoking cigarettes per day: 20.0 Years smoked: 15 Smoking pack-years: 15.00 Smoking status: Current every day smoker Tobacco type: e-cigarettes/vaping Second hand tobacco smoke exposure: No Smoking end date: 05/13/12 Additional smoking assessment comments: former cigarette smoker, current vaper Alcohol intake: former Substance use: current Substance use type: marijuana Last use: 07/01/24 Do You Feel Safe in your Home?: Yes Lack of Transportation: No Lack of Food: Never True Current Housing: I Have Housing Concerned About Future Housing: No Difficulty Paying Gas/Electric Bills: No Difficulty Paying for Meds: No Currently Unemployed: No Education: High School Diploma/GED Difficulty w/ Childcare or Family Care: No Living arrangements: with family Occupation/Education: occupation Additional occupation/education comments: [employer]-currently not working due to pain standing and arthritis in hands. Gender identity (if verbalized by the patient): Male Spiritual care concerns: No Meds Home Medications and Allergies Home Medications ?Medication ?Instructions ?Recorded ?Confirmed ?Type celecoxib 200 mg capsule (Celebrex) 200 mg PO BID #60 caps 04/02/22 07/02/24 Rx acetaminophen 500 mg tablet 500 mg PO Q6H 09/11/22 07/02/24 History (Tylenol Extra Strength) duloxetine 60 mg capsule,delayed 60 mg PO DAILY #90 caps 09/11/22 07/02/24 Rx release testosterone cypionate 200 mg/mL 150 mg (0.75 mL) IM WEEKLY #10 mL 01/29/24 07/02/24 Rx intramuscular oil trazodone 50 mg tablet See Rx Instructions .Route 03/18/24 07/02/24 Rx .COMPLEX #90 tabs Allergies Allergy/AdvReac Type Severity Reaction Status Date / Time No Known Allergies Allergy Verified 07/02/24 00:20 Vital Signs Vital Signs - 24 hr 07/02/24 00:01 07/02/24 00:16 07/02/24 00:17 Temperature Pulse Rate 203 H 166 H 202 H Respiratory Rate 18 Blood Pressure 114/87 138/94 H Pulse Oximetry 100 Oxygen Delivery Room Air 07/02/24 00:29 07/02/24 00:46 07/02/24 00:58 Temperature Pulse Rate 166 H 155 H Respiratory Rate Blood Pressure 117/59 L Pulse Oximetry 100 Oxygen Delivery Room Air 07/02/24 01:06 07/02/24 01:09 07/02/24 01:13 Temperature 36.8 C Pulse Rate 116 H 110 H 110 H Respiratory Rate 30 H Blood Pressure 125/74 125/74 Pulse Oximetry 100 Oxygen Delivery 07/02/24 01:28 07/02/24 02:27 07/02/24 02:27 Temperature 36.7 C Pulse Rate 102 H 88 92 Respiratory Rate 16 15 Blood Pressure 119/92 H 126/84 Pulse Oximetry 99 97 Oxygen Delivery 07/02/24 03:11 07/02/24 03:17 07/02/24 03:31 Temperature 36.6 C Pulse Rate 82 81 88 Respiratory Rate 16 16 Blood Pressure 115/69 116/69 125/88 Pulse Oximetry 99 100 Oxygen Delivery Exam Narrative: GENERAL: Well-appearing, well-nourished, and in no acute distress. HEAD: Normocephalic, atraumatic. ENT:? Mucous membranes moist. CHEST: Clear to auscultation.? No respiratory distress. HEART: Regular rate and rhythm. ? Normal peripheral pulses. 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 EXTREMITIES: Normal range of motion. No peripheral edema. SKIN: Warm dry normal color NEURO: Alert and oriented x3. PSYCH: Normal mood and affect H&P: Results Labs Labs: Short CBC 07/02/24 Range/Units 00:23 WBC 9.4 (4.5-10.0) K/mm3 Hgb 16.4 (14.0-18.0) g/dL Hct 46.1 (42.0-52.0) % Plt Count 301 (150-375) k/mm3 [facility] 07/02/24 00:23 Sodium 137 Potassium 3.3 L Chloride 100 Carbon Dioxide 26 BUN 18 Creatinine 0.88 Glucose 126 H Calcium 9.8 Liver Function 07/02/24 Range/Units 00:23 Total Bilirubin 0.7 (0.2-1.3) mg/dL AST 39 (17-59) U/L ALT 47 (6-50) U/L Alkaline Phosphatase 107 (38-126) U/L Albumin 4.8 (3.5-5.1) g/dL Pulse Oximetry SpO2 results: 97-100% on room air Attestation: I personally reviewed and interpreted this pulse oximetry as follows: Interpretation: No need for supplemental oxygenation at this time ECG Attestation: I personally reviewed and interpreted this ECG as follows: ECG completion date: 07/02/24 ECG completion time: 00:06 Prior ECG tracings: not available for review Interpretation: Atrial fibrillation with RVR rate of 214 QRS duration 89 QTC 351 QRS axis 38, no STEMI Assessment and Plan Assessment and plan (1) Atrial fibrillation, new onset: Code(s): I48.91 - Unspecified atrial fibrillation Status: Acute Assessment and Plan: -Atrial fibrillation with RVR, rate in 200s per EMS, no improvement with adenosine 6 mg then 12 mg -Mild improvement with diltiazem in ER but remained very tachycardic with dizziness symptoms -S/P synchronized cardioversion of 100 joules with conversion to sinus rhythm -Sudden onset after dinner at 2300 this evening, no prior episodes of tachycardia/palpitations like this -CHADS-VASC score of 0 so no anticoagulation at this time -Cardiology was consulted to see in AM -Echocardiogram ordered (2) Adverse effect of cannabis: Qualifiers: Encounter type: initial encounter Qualified Code(s): T40.715A - Adverse effect of cannabis, initial encounter Code(s): T40.715A - Adverse effect of cannabis, initial encounter Status: Acute Assessment and Plan: -Patient reports nightly cannabis use including tonight prior to episode of palpitations and tachycardia -Uses for anxiety and chronic pain related to psoriatic arthritis (3) Anxiety: Code(s): F41.9 - Anxiety disorder, unspecified Status: Acute Assessment and Plan: -History of anxiety but not very anxious on arrival to ER or on exam (4) Psoriatic arthritis: Code(s): L40.50 - Arthropathic psoriasis, unspecified Status: Acute Assessment and Plan: -Takes Celebrex and Tylenol for pain -Uses cannabis also for pain Quality If No VTE Prophylaxis Answer both mechanical and pharmacologic: Reason no mechanical VTE proph: low risk/not indicated Reason no pharmacologic proph: low risk/not indicated Hospitalist MIPS Advance Care Plan I have confirmed that the patient's Advanced Care Plan is present, code status is documented, or surrogate decision maker is listed in patient medical record.: Yes Medication Reconciliation I have utilized all available resources to obtain, update and review the patients current medications (includes all prescriptions, OTC, herbals, cannabis, and nutritional supplements).: Yes
--- NOTE | 2024-07-02 03:51 | ECG_ITS ---
Test Date: 2024-07-02 01:19:01 Measurements Intervals [place] Rate: 101 P: 50 DE: 147 QRS: 34 QRSD: 90 T: 3 QT: 312 QTc: 404 Interpretive Statements SINUS TACHYCARDIA EARLY PRECORDIAL R/S TRANSITION NONSPECIFIC ST-T WAVE ABNORMALITY- INFERIOR LEADS BORDERLINE ECG Compared to ECG 07/02/2024 00:18:58 Atrial fibrillation no longer present POSSIBLE ISCHEMIA NO LONGER PRESENT Electronically Signed On 07-02-2024 06:03:45 LIFE SKILLS INSTRUCTOR by Jovanni Smyth D.O.
[2024-07-02] MEDS: MAGNESIUM SULF 1 GM/D5W 100 ML 1 GM/100 ML BAG IVPB (04:01)
[2024-07-02] MEDS: POTASSIUM CHLORIDE INJ 40 MEQ in SODIUM CHLORIDE 0.9% IV 500 ML 130 MEQ IVPB (04:01)
[2024-07-02 06:55] LABS: Basophils Absolute Auto 0.1 K/mm3 (0.0-0.1); Basophils Percent Auto 0.6 % (0.2-1.2); Eosinophils Percent Auto 0.4 % (0-4.4); Hematocrit 42.6 % (42.0-52.0); Hemoglobin 14.5 g/dL (14.0-18.0); Immature Granulocyte Absolute 0.03 K/mm3 (0.00-0.031); Immature Granulocyte Percent A 0.4 % (0-0.5); Lymphocytes Absolute Auto 2.22 K/mm3 (0.9-3.2); Lymphocytes Percent Auto 27.5 % (18.3-44.2); Mean Corpuscular Hemoglobin 29.8 pg (26-34); Mean Corpuscular Volume 87.5 fl (80-100); Mean Platelet Volume 9.8 fl (7.4-10.4); Monocytes Absolute Auto 0.5 K/mm3 (0.1-0.6); Monocytes Percent Auto 6.4 % (2.6-8.5); Neutrophils Absolute Auto 5.2 K/mm3 (1.3-6.7); Neutrophils Percent Auto 64.7 % (45.5-73.1); Platelet Count Result 245 k/mm3 (150-375); Red Blood Count 4.87 M/mm3 (4.6-6.20); Red Cell Distribution Width 12.5 % (11.5-14.5); White Blood Count 8.1 K/mm3 (4.5-10.0)
[2024-07-02 07:04] LABS: Ethanol < 10 mg/dL (<10)
[2024-07-02 07:05] LABS: Albumin Level 3.7 g/dL (3.5-5.1); Anion Gap 9 mmol/L (4-12); Blood Urea Nitrogen 13 mg/dL (9-20); Calcium 8.3 mg/dL (8.4-10.2); Carbon Dioxide 23 mmol/L (22-30); Chloride 106 mmol/L (98-107); Estimated CRCL calculation 114 ml/min; Estimated Glomerular Filt Rate > 60; Glucose 104 mg/dL (65-110); Magnesium 2.4 mg/dL (1.6-2.3); Phosphorus 3.3 mg/dL (2.5-4.5); Potassium 4.3 mmol/L (3.4-5.0); Sodium 138 mmol/L (137-145)
[2024-07-02 07:39] LABS: Amphetamine Screen Urine Negative (Negative); Barbiturate Screen Urine Negative (Negative); Benzodiazepines Screen Urine Negative (Negative); Cannabinoid Screen Urine Positive (Negative); Cocaine Screen Urine Negative (Negative); Methadone Screen Urine Negative (Negative); Opiate Screen Urine Negative (Negative); Phencyclidine Screen Urine Negative (Negative)
--- NOTE | 2024-07-02 10:43 | PM.DS ---
DS: Admitting Diagnosis Discharge Date 14 June 2024 Admitting Diagnosis Palpitations and dizziness DS: Discharge Diagnosis Discharge Diagnosis (1) Atrial fibrillation, new onset: Code(s): I48.91 - Unspecified atrial fibrillation Status: Acute DS: Summary Hospital Course Hospital Course: This is a 44-year-old male patient with a history of psoriatic arthritis who is admitted to the hospital due to new onset atrial fibrillation with RVR in the 200s. Patient was eating some food before bed around 11:00 p.m. when he suddenly had abrupt onset palpitations tachycardia resulted in lightheadedness and dizziness. EMS was called. EMS believed patient was in SVT so they administered 6 mg of adenosine with no significant change followed by 12 mg of adenosine again with no sustained change. In the emergency department EKG showed AFib RVR with a rate of 214. He received IV diltiazem and was initiated on a drip that was titrated up to 10 mg. His heart rate remained 160-180 so decision was made to sedate with etomidate 8 mg and provide synchronized cardioversion. Patient is asymptomatic this morning and has been in Normal sinus rhythm and elctrolytes wnl. Discussed [facility] cardiology and he recommended Eliquis 5mg po bid x 1month, and continue Metoprolol 25mg daily. F/u wit PCP in 3-5 days F/u with cardiology as instructed Time Spent with Patient Time attestation: Total time spent providing and/or coordinating discharge services: DS: Data Data Completed and Pending Labs on day of discharge: Labs from last 24 hours 07/02/24 07/02/24 07/02/24 06:40 06:01 00:23 WBC 8.1 9.4 RBC 4.87 5.40 Hgb 14.5 16.4 Hct 42.6 46.1 MCV 87.5 85.4 MCH 29.8 30.4 MCHC 34.0 35.6 RDW 12.5 12.4 Plt Count 245 301 MPV 9.8 10.1 Immature Gran % (Auto) 0.4 0.2 Neut % (Auto) 64.7 40.7 L Lymph % (Auto) 27.[address] [place] % (Auto) 6.4 6.8 Eos % (Auto) 0.4 1.7 Baso % (Auto) 0.6 1.1 Lymph # (Auto) 2.[address] [place] # (Auto) 0.5 0.6 Eos # (Auto) 0.0 0.2 Baso # (Auto) 0.1 0.1 Abs Immat Gran (auto) 0.03 0.02 Absolute Neuts (auto) 5.2 3.9 Absolute Nucleated RBC 0.000 0.000 Nucleated RBC % 0.0 0.0 Sodium 138 137 Potassium 4.3 3.3 L Chloride 106 100 Carbon Dioxide 23 26 Anion Gap 9 11 BUN 13 D 18 Creatinine 0.72 0.88 Estim Creat Clear Calc 114 95 Estimated GFR > 60 > 60 Glucose 104 126 H Calcium 8.3 L 9.8 Phosphorus 3.3 Magnesium 2.4 H 2.0 Total Bilirubin 0.7 AST 39 ALT 47 Alkaline Phosphatase 107 Total Protein 8.0 Albumin 3.7 4.8 TSH 3.210 Urine Opiates Screen Negative Urine Methadone Screen Negative Ur Barbiturates Screen Negative Ur Phencyclidine Scrn Negative Ur Amphetamine Screen Negative U Benzodiazepines Scrn Negative Urine Cocaine Screen Negative U Cannabinoids Screen Positive A Ethyl Alcohol < 10 Discharge Plan Discharge Attending physician on discharge: Lanie Vicente Consulting providers: Raegan Laguna Discharging Clinician: Lanie Vicente Anticipated Discharge Date/Time: 07/02/24 10:40 Patient Disposition: Home, Self-Care Activity: as tolerated Diet: as tolerated and heart healthy Patient Instructions: Antibiotic Form, A-fib (Atrial Fibrillation) (DC), A-fib (Atrial Fibrillation) (GEN), Cardioversion (DC), Cardioversion (GEN) Patient Language: Uzbek Stand Alone Forms: General Discharge Information Follow-up/Referrals: Raegan Laguna DO [Physician] - (Follow-up with cardiology as instructed) Donn Lindquist MD [Primary Care Provider] - (Follow-up with PCP 3-5 days) Discharge Medications: New Eliquis 5 mg tablet 5 mg PO BID 30 Days Qty: 60 0RF metoprolol succinate 25 mg tablet extended release 24 hr 25 mg PO DAILY Qty: 30 1RF No Action celecoxib [Celebrex] 200 mg capsule 200 mg PO BID Qty: 60 6RF acetaminophen [Tylenol Extra Strength] 500 mg tablet 500 mg PO Q6H duloxetine 60 mg capsule,delayed release(DR/EC) 60 mg PO DAILY Qty: 90 0RF trazodone 50 mg tablet See Rx Instructions .ROUTE .COMPLEX Qty: 90 3RF Dose Instruction: TAKE 1 TABLET BY MOUTH EVERY DAY AT BEDTIME NEEDED FOR INSOMNIA Rx Instructions: TAKE 1 TABLET BY MOUTH EVERY DAY AT BEDTIME NEEDED FOR INSOMNIA testosterone cypionate 200 mg/mL oil 150 mg IM WEEKLY Qty: 10 0RF Date of admission: 07/02/24 01:41 Primary Care Provider: Donn Lindquist Admitting Provider: Lanie Vicente Attending physician on admission: Lanie Vicente Condition: Stable
--- NOTE | 2024-07-02 12:05 | PC.NURSE ---
Reviewed all discharge instructions with patient and family member. verbalizes understanding and deny further questions at this time.
--- NOTE | 2024-07-02 12:53 | P.CONCA_ITS ---
Assessment and Plan Assessment and plan (1) Atrial fibrillation, new onset: Code(s): I48.91 - Unspecified atrial fibrillation Status: Acute Plan 44-year-old man who presented with palpitations found to have atrial fibrillation with rapid ventricular rates now status post cardioversion in the ER Paroxysmal atrial fibrillation -start metoprolol succinate 25 mg p.o. daily and since he was recently cardioverted, would recommend Eliquis 5 mg p.o. b.i.d. for month -we have discussed the risk factors for atrial fibrillation such as smoking, sleep apnea, alcohol consumption, hypertension -he can follow up in clinic with me next month History of Present Illness History of Present Illness Consult date/time: 07/02/24 12:53 Requesting physician: Lanie Vicente MD Consult reason: atrial fibrillation Reason For Visit: Atrial fibrillation Narrative: 44-year-old man presented with sudden-onset palpitations. He was thrown out the garbage when he suddenly developed palpitations. Typically is able to complete his physical activities without any cardiopulmonary limitations. Currently he is asymptomatic without any chest discomfort shortness of breath. Review of Systems 2 Cardiovascular: Cardiovascular: Reports as per HPI Respiratory: Respiratory: Reports as per HPI [facility] Past Medical History Medical History Swelling of knee Low testosterone in male Right ACL tear Low libido Right knee pain Encounter for screening for other viral diseases Bilateral hip pain Back pain Scalp psoriasis Psoriatic arthritis BMI 24.0-24.9, adult Surgical History Surgical History H/O elbow surgery H/O knee surgery Family History Family History Father Hypertension Hyperlipemia Malignant neoplasm of prostate Mother Cerebrovascular accident Skin cancer Social History Social History Smoking packs per day: 1 Smoking cigarettes per day: 20.0 Years smoked: 15 Smoking pack-years: 15.00 Smoking status: Current every day smoker Tobacco type: e-cigarettes/vaping Second hand tobacco smoke exposure: No Smoking end date: 05/13/12 Additional smoking assessment comments: former cigarette smoker, current vaper Alcohol intake: former Substance use: current Substance use type: marijuana Last use: 07/01/24 Do You Feel Safe in your Home?: Yes Lack of Transportation: No Lack of Food: Never True Current Housing: I Have Housing Concerned About Future Housing: No Difficulty Paying Gas/Electric Bills: No Difficulty Paying for Meds: No Currently Unemployed: No Education: High School Diploma/GED Difficulty w/ Childcare or Family Care: No Living arrangements: with family Occupation/Education: occupation Additional occupation/education comments: [employer] industry-currently not working due to pain standing and arthritis in hands. Gender identity (if verbalized by the patient): Male Spiritual care concerns: No Meds Home Medications and Allergies Home Medications ?Medication ?Instructions ?Recorded ?Confirmed ?Type celecoxib 200 mg capsule (Celebrex) 200 mg PO BID #60 caps 04/02/22 07/02/24 Rx acetaminophen 500 mg tablet 500 mg PO Q6H 09/11/22 07/02/24 History (Tylenol Extra Strength) duloxetine 60 mg capsule,delayed 60 mg PO DAILY #90 caps 09/11/22 07/02/24 Rx release testosterone cypionate 200 mg/mL 150 mg (0.75 mL) IM WEEKLY #10 mL 01/29/24 07/02/24 Rx intramuscular oil trazodone 50 mg tablet See Rx Instructions .Route 03/18/24 07/02/24 Rx .COMPLEX #90 tabs apixaban 5 mg tablet (Eliquis) 5 mg PO BID 30 days #60 tabs 07/02/24 Rx metoprolol succinate 25 mg 25 mg PO DAILY #30 tabs 07/02/24 Rx tablet,extended release 24 hr Allergies Allergy/AdvReac Type Severity Reaction Status Date / Time No Known Allergies Allergy Verified 07/02/24 00:20 Vital Signs Vital Signs - 24 hr 07/02/24 00:01 07/02/24 00:16 07/02/24 00:17 Temperature Pulse Rate 203 H 166 H 202 H Respiratory Rate 18 Blood Pressure 114/87 138/94 H Pulse Oximetry 100 Oxygen Delivery Room Air 07/02/24 00:29 07/02/24 00:46 07/02/24 00:58 Temperature Pulse Rate 166 H 155 H Respiratory Rate Blood Pressure 117/59 L Pulse Oximetry 100 Oxygen Delivery Room Air 07/02/24 01:06 07/02/24 01:09 07/02/24 01:13 Temperature 36.8 C Pulse Rate 116 H 110 H 110 H Respiratory Rate 30 H Blood Pressure 125/74 125/74 Pulse Oximetry 100 Oxygen Delivery 07/02/24 01:28 07/02/24 02:27 07/02/24 02:27 Temperature 36.7 C Pulse Rate 102 H 88 92 Respiratory Rate 16 15 Blood Pressure 119/92 H 126/84 Pulse Oximetry 99 97 Oxygen Delivery 07/02/24 03:11 07/02/24 03:17 07/02/24 03:31 Temperature 36.6 C Pulse Rate 82 81 88 Respiratory Rate 16 16 Blood Pressure 115/69 116/69 125/88 Pulse Oximetry 99 100 Oxygen Delivery 07/02/24 04:00 07/02/24 06:00 07/02/24 07:42 Temperature 37.2 C Pulse Rate 90 86 88 Respiratory Rate 18 Blood Pressure 133/85 Pulse Oximetry 98 Oxygen Delivery 07/02/24 08:00 07/02/24 08:00 07/02/24 10:00 Temperature Pulse Rate 88 96 90 Respiratory Rate 18 Blood Pressure Pulse Oximetry 98 Oxygen Delivery Room Air Exam 2 Const: General: comfortable HENMT: Mouth: Yes moist mucous membranes Eyes: EOM: EOMs intact bilaterally Neck: Neck: no JVD Resp: Effort & Inspection: normal respiratory effort Auscultation: clear to auscultation bilaterally Cardio: Rate: regular rate Rhythm: regular rhythm Extrem: General: no pedal edema Results Labs and Meds 07/02/24 06:40 07/02/24 06:40 Lab results: Cardiac Enzymes 07/02/24 Range/Units 00:23 AST 39 (17-59) U/L CBC 07/02/24 07/02/24 Range/Units 00:23 06:40 WBC 9.4 8.1 (4.5-10.0) K/mm3 RBC 5.40 4.87 (4.6-6.20) M/mm3 Hgb 16.4 14.5 (14.0-18.0) g/dL Hct 46.1 42.6 (42.0-52.0) % Plt Count 301 245 (150-375) k/mm3 Lymph # (Auto) 4.67 H 2.22 (0.9-3.2) K/mm3 [place] # (Auto) 0.6 0.5 (0.1-0.6) K/mm3 Eos # (Auto) 0.2 0.0 (0-0.3) K/mm3 Baso # (Auto) 0.1 0.1 (0.0-0.1) K/mm3 Comprehensive Metabolic Panel 07/02/24 07/02/24 Range/Units 00:23 06:40 Sodium 137 138 (137-145) mmol/L Potassium 3.3 L 4.3 (3.4-5.0) mmol/L Chloride 100 106 (98-107) mmol/L Carbon Dioxide 26 23 (22-30) mmol/L BUN 18 13 D (9-20) mg/dL Creatinine 0.88 0.72 (0.7-1.3) mg/dL Glucose 126 H 104 (65-110) mg/dL Calcium 9.8 8.3 L (8.4-10.2) mg/dL AST 39 (17-59) U/L ALT 47 (6-50) U/L Alkaline Phosphatase 107 (38-126) U/L Total Protein 8.0 (6.3-8.2) g/dL Albumin 4.8 3.7 (3.5-5.1) g/dL Intake and Output 07/01/24 07/02/24 07/02/24 23:59 07:59 15:59 Intake Total 4006.3 240 Output Total 650 800 Balance 3356.3 -560 Intake: IV 2006.3 Sodium Chloride 0.9% IV 1,000 2000 ml @ 999 mls/hr IV CONT .Q1H1M STA Rx#:[id number] dilTIAZem 100 MG/100 ML 100 mg 6.3 In 100 ml @ 5 MG/HR 5 mls/hr IV CONT .Q20H STA Rx#:[id number] Oral 240 Other 2000 Output: Urine 650 800 Other: Intake, Other Source IV NS Patient Weight 07/02/24 23:59 Weight 76.2 kg
== END 2024-07-02 12:08 | disposition home or self-care (01) ==
LOC: ANHED 01:36 → ANHIMU 02:48
PROVIDERS: Nurse Practitioner; Admitting Provider Internal Medicine; Emergency Provider Physician Assistant; PCP Family Medicine; Visit Provider Internal Medicine
DX: I48.0 Paroxysmal atrial fibrillation (principal); I48.91 Unspecified atrial fibrillation; T40.715A Adverse effect of cannabis, initial encounter; F17.290 Nicotine dependence, other tobacco product, uncomplicated; F41.9 Anxiety disorder, unspecified; G89.29 Other chronic pain; L40.50 Arthropathic psoriasis, unspecified; M25.552 Pain in left hip; M25.551 Pain in right hip; M54.9 Dorsalgia, unspecified; R68.82 Decreased libido; Z79.899 Other long term (current) drug therapy
CPT/HCPCS: 36415; 80053; 80069; 80307; 82077; 83735; 84443; 85025; 92960; 93005; 93306; 96365; 96366; 96367; 96375; 99285; A9270; G0378; G0379; J3475; J3480; J7030; J7040

== ENCOUNTER 2024-07-14 06:43 | Emergency (ER) | payer OTHER, SELFPAY ==
[2024-07-14] VITALS (8 sets, daily range): BP systolic 114–132; BP diastolic 74–93; PULSE 83–105; RESP 14–15; TEMP 36.6–36.9; O2SAT 97–100
--- NOTE | ~2024-07-14 | XR_ITS ---
Clinical Indication: Chest pain PA and lateral views of the chest: Comparison: None Findings: The lungs are clear, without evidence of focal consolidation or pleural effusion. Cardiome diastinal silhouette is within normal limits. Bones and soft tissues are unremarkable. Impression: Normal chest. Reviewed, dictated and finalized at location . REGISTRAR Impression: Normal chest.
--- NOTE | 2024-07-14 06:44 | ECG_ITS ---
Test Date: 2024-07-14 06:49:15 Measurements Intervals [place] Rate: 93 P: 76 ND: 142 QRS: 59 QRSD: 92 T: 18 QT: 328 QTc: 409 Interpretive Statements SINUS RHYTHM POSSIBLE LEFT ATRIAL ENLARGEMENT [-0.1mV P WAVE IN V1/V2] NONSPECIFIC T-WAVE ABNORMALITY Compared to ECG 07/02/2024 01:19:01 T-wave abnormality now present Sinus tachycardia no longer present Electronically Signed On 07-15-2024 09:43:30 COMPUTER REPAIR TECHNICIAN by Leonel Penn M.D.
--- OUTSIDE RECORDS SUMMARY | 2024-07-14 06:45 | XMS_ITS | Clinical Summary ---
Author Organization [facility] [address] Address [address] [place] [id number] Care Team Providers Care Sales Account Coordinator Name Role Phone Josh Lion MD Primary Care Provider +- [phone] Allergies No known active allergies Medications ibuprofen [...] 05/22/2021 Assessment & Plan (05/27/2021 12:32 PM MUSIC INDUSTRY INTERNSHIP): A initial well visit to establish care [...] of serotonin syndrome, we will watch for. Encounters Date Type Department Care Team Description 07/02/2024 Telephone [facility] Cardiology [address] [place] [address] Leonel Penn MD HFU from Last 3 Months Immunizations Immunization Administration Dates Next Due Influenza, [...] staff should administer the PHQ-9) 0 02/19/2022 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) Not on file Not on file [...] 11/20/2021, Additional history exists Covid-19 Vaccine ( - season) 2024 08/15/2020 Influenza Vaccine (#1) 2024 03/28/2018 DTaP/Tdap/Td Vaccine (2 - Td or Tdap) 2028 2018 HPV Vaccines Aged Out No longer eligi ble based on patient's age to complete this topic Pneumococcal vaccine <65 Aged Out No longer eligible based on patient's age to complete this topic Insurance [facility] Care Teams Sales Account Coordinator Relationship Specialty Start Date End Date Josh Lion MD PCP - General Family Medicine 05/22/21
--- OUTSIDE RECORDS SUMMARY | 2024-07-14 06:45 | XMS_ITS | Referral Summary ---
Author Organization [facility] [address] Address [address] [place] [id number] Care Team Providers Care Medical Technologist Generalist Name Role Phone Josh Lion MD Primary Care Provider Encounters Date Type Department Care Team Description 07/02/[address] 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
--- OUTSIDE RECORDS SUMMARY | 2024-07-14 06:45 | XMS_ITS | Encounter Summary ---
Author Organization [employer] Address 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
--- OUTSIDE RECORDS SUMMARY | 2024-07-14 06:45 | XMS_ITS | Clinical Summary ---
Author Organization [facility] Address [address] Mazariegos: Epic Prelude ADT JANIYA FISCHER [address] Care Team Providers Care Fitness Consultant Name Role Phone Unavailable Primary Care Provider Unavailabl e Social History Tobacco Use Types Packs/Day Years Used Date Smoking Tobacco: Never Assessed Sex and Gender Information Value Date Recorded Sex Assigned at Not on file Legal Sex Male 5:33 AM CONCESSIONIST Gender Identity Not on file Sexual Orientation [...]
[2024-07-14 07:05] LABS: Basophils Percent Auto 0.5 % (0.2-1.2); Eosinophils Percent Auto 0.1 % (0-4.4); Hemoglobin 15.8 g/dL (14.0-18.0); Immature Granulocyte Absolute 0.01 K/mm3 (0.00-0.031); Immature Granulocyte Percent A 0.1 % (0-0.5); Lymphocytes Absolute Auto 0.51 K/mm3 (0.9-3.2); Lymphocytes Percent Auto 6.9 % (18.3-44.2); Mean Corpuscular HGB Conc 34.3 g/dl (32-36); Mean Corpuscular Hemoglobin 30.2 pg (26-34); Mean Corpuscular Volume 87.8 fl (80-100); Mean Platelet Volume 9.9 fl (7.4-10.4); Monocytes Absolute Auto 0.8 K/mm3 (0.1-0.6); Monocytes Percent Auto 10.9 % (2.6-8.5); Neutrophils Percent Auto 81.5 % (45.5-73.1); Platelet Count Result 242 k/mm3 (150-375); Red Blood Count 5.24 M/mm3 (4.6-6.20); White Blood Count 7.3 K/mm3 (4.5-10.0)
[2024-07-14 07:16] LABS: Alanine Aminotransferase 35 U/L (6-50); Alkaline Phosphatase 63 U/L (38-126); Anion Gap 14 mmol/L (4-12); Aspartate Amino Transferase 27 U/L (17-59); Bilirubin,Total 0.9 mg/dL (0.2-1.3); Blood Urea Nitrogen 13 mg/dL (9-20); Calcium 9.5 mg/dL (8.4-10.2); Carbon Dioxide 26 mmol/L (22-30); Chloride 98 mmol/L (98-107); Estimated CRCL calculation 85 ml/min; Estimated Glomerular Filt Rate > 60; Glucose 123 mg/dL (65-110); Lipase 68 U/L (23-300); Potassium 3.4 mmol/L (3.4-5.0); Sodium 138 mmol/L (137-145)
--- OUTSIDE RECORDS SUMMARY | 2024-07-14 07:23 | XMS_ITS | Clinical Summary ---
Author Organization [facility] [address] Address [address] [place] [phone] Care Team Providers Care Product Consultant Name Role Phone Josh Lion MD Primary Care Provider +- [phone] Allergies No known active allergies Medications ibuprofen [...] 05/22/2021 Assessment & Plan (05/27/2021 12:32 PM TRAIN CONTROLLER): A initial well visit to establish care [...] Type Department Care Team Description 07/02/2024 Telephone [facility] Cardiology [address] [place] [address] Leonel Penn MD HFU from [...] staff should administer the PHQ-9) 0 02/19/2022 [facility] - Occupational Stress [...] on file Legal Sex Male 8:52 PM TRAIN CONTROLLER Gender Identity Not on file Sexual Orientation Straight 05/22/2021 11 :53 AM TRAIN CONTROLLER 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
--- OUTSIDE RECORDS SUMMARY | 2024-07-14 07:23 | XMS_ITS | Encounter Summary ---
Author Organization [employer] Address [address] [place] [address] Care Team Providers Care Inspector Motor Vehicles Name Role Phone Unavailable Primary Care Provider Unavailabl e Encounter Details Date Type Department Care Team (Late st Contact Info) Description 09/11/2007 Outpatient Historical [facility] Evangelista Schuler MD [address] [facility] [address] [place] [address] Social History Tobacco Use Types Packs/Day Years Used Date Smoking Tobacco: Never Assessed Sex and Gender Information Value Date Recorded Sex Assigned at Not on file Legal Sex Male 5:33 AM CATERING STAFF MEMBER Gender Identity Not on file Sexual Orientation Not on file documented as of this encounter Plan of Treatment Not on file documented as of this encounter Visit Diagnoses Not on filedocumented in this encounter
--- OUTSIDE RECORDS SUMMARY | 2024-07-14 07:23 | XMS_ITS | Clinical Summary ---
Author Organization [facility] Address [address] Mazariegos: Epic Prelude ADT JANIYA FISCHER [address] Care Team Providers Care Solid Glass Rod Dowel Machine Operator Name Role Phone Unavailable Primary Care Provider Unavailabl e Social History Tobacco Use Types Packs/Day Years Used Date Smoking Tobacco: Never Assessed Sex and Gender Information Value Date Recorded Sex Assigned at Not on file Legal Sex Male 5:33 AM BOILER RIVETER Gender Identity Not on file Sexual Orientation [...]
--- OUTSIDE RECORDS SUMMARY | 2024-07-14 07:23 | XMS_ITS | Referral Summary ---
Author Organization [facility] [address] Address [address] [place] [phone] Care Team Providers Care Chain Machine Operator Name Role Phone Josh Lion MD Primary Care Provider Encounters Date Type Department Care Team Description 07/02/2024 Telephone [facility] Cardiology [address] [place] [address] Leonel Penn MD HFU from [...] 05/22/2021 Assessment & Plan (05/27/2021 12:32 PM VARIOUS EXCEPTIONALITIES TEACHER): A initial well visit to establish care [...] staff should administer the PHQ-9) 0 02/19/2022 [facility] - [...] on file Legal Sex Male 8:52 PM VARIOUS EXCEPTIONALITIES TEACHER Gender Identity Not on file Sexual Orientation Straight 05/22/2021 11 :53 AM VARIOUS EXCEPTIONALITIES TEACHER 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
[2024-07-14 07:27] LABS: Troponin I < 0.012 ng/mL (0.000-0.034)
--- NOTE | 2024-07-14 07:35 | ED_ITS ---
HPI - Chest Pain General Chief Complaint: Chest Pain Stated Complaint: cp/dizziness Time Seen by Provider: 07/14/24 07:15 History of Present Illness HPI narrative: Pt presents with intermittent CP since yesterday morning. Pt describes it as tightness in his left lateral lower chest with some radiation into axilla. Pt says it is better lying down and seems to be worse when he is upright but it is not really exertional. Pt has had numerous episodes since yesterday lasting form 30 minutes t 3 hrs. Pt has some mild symptoms currently. Pt has had paroxysmal a fib and was shocked out of a fib here recently and is on eliquis and b wali. Pt sees Dr Penn. Related Data Home Medications ?Medication ?Instructions ?Recorded ?Confirmed ?Last Taken ?Type acetaminophen 500 mg tablet 500 mg PO Q6H 09/11/22 07/16/24 Unknown History (Tylenol Extra Strength) Allergies Allergy/AdvReac Type Severity Reaction Status Date / Time No Known Allergies Allergy Verified 07/16/24 07:27 Review of Systems 2 Review of Systems: All systems reviewed & are unremarkable except as noted in HPI and below PMFSH Past Medical History Medical History Swelling of knee Low testosterone in male Right ACL tear Low libido Right knee pain Encounter for screening for other viral diseases Bilateral hip pain Back pain Scalp psoriasis Psoriatic arthritis BMI 24.0-24.9, adult Surgical History Surgical History H/O elbow surgery H/O knee surgery Family History Family History Father Hypertension Hyperlipemia Malignant neoplasm of prostate Mother Cerebrovascular accident Skin cancer Social History Social History Smoking packs per day: 1 Smoking cigarettes per day: 20.0 Years smoked: 15 Smoking pack-years: 15.00 Smoking status: Current every day smoker Tobacco type: e-cigarettes/vaping Second hand tobacco smoke exposure: No Smoking end date: 05/13/12 Additional smoking assessment comments: former cigarette smoker, current vaper Alcohol intake: former Substance use: current Substance use type: marijuana Last use: 07/01/24 Do You Feel Safe in your Home?: Yes Lack of Transportation: No Lack of Food: Never True Current Housing: I Have Housing Concerned About Future Housing: No Difficulty Paying Gas/Electric Bills: No Difficulty Paying for Meds: No Currently Unemployed: No Education: High School Diploma/GED Difficulty w/ Childcare or Family Care: No Living arrangements: with family Occupation/Education: occupation 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 Gender identity (if verbalized by the patient): Male Spiritual care concerns: No Exam 2 Const: General: healthy appearing and no acute distress Nutritional Appearance: well nourished Orientation/consciousness: patient oriented x3 Limitations: no limitations Chest: Chest palpation & inspection: normal inspection of the chest Resp: Effort & Inspection: normal respiratory effort Auscultation: clear to auscultation bilaterally Cardio: Rate: regular rate Rhythm: regular rhythm GI: GI Palp: Yes Soft to palpation Auscultation: normal bowel sounds Back/Spine/Pelvis: Back: no CVA tenderness Skin: General skin exam: normal color Rashes: no rashes Wounds: no wounds Neuro: General: patient oriented x3, moves all extremities and no focal motor deficits Cranial nerves: Yes Nystagmus not present Speech: normal speech Extrem: General: normal to inspection and no clubbing, cyanosis or edema Psych: Mental Status: mental status grossly normal Affect: normal affect Attitude: cooperative Course Vital Signs Vital signs: Vital Signs Temperature 98.4 F 07/14/24 06:49 Pulse Rate 94 07/14/24 06:49 Respiratory Rate 15 07/14/24 06:49 Blood Pressure 120/91 H 07/14/24 06:49 Pulse Oximetry 100 07/14/24 06:49 Oxygen Delivery Room Air 07/14/24 06:49 Temperature 98 F 07/14/24 10:48 Pulse Rate 105 H 07/14/24 10:48 Respiratory Rate 14 07/14/24 10:48 Blood Pressure 114/81 07/14/24 10:48 Pulse Oximetry 98 07/14/24 10:48 Oxygen Delivery Room Air 07/14/24 06:55 MDM - Chest Pain MDM Narrative Medical decision making narrative: Pt with hx of paroxysmal a fib presents with intermitten CP since yesterday morning. EKG unremarkable. will rule out CAD with trop x 2 and get cxr and cardiac work up to rule out other causes but doubt PE or dissection. given Hx and normal vitals. labs fine cxr neg. flu a positive. trop neg x 2. home with flu instructions. pt does not want tamiflu. Lab Data 07/14/24 06:58 07/14/24 06:58 Labs: Lab Results 07/14/24 07/14/24 Range/Units 06:58 09:36 WBC 7.3 (4.5-10.0) K/mm3 RBC 5.24 (4.6-6.20) M/mm3 Hgb 15.8 (14.0-18.0) g/dL Hct 46.0 (42.0-52.0) % MCV 87.8 (80-100) fl MCH 30.2 (26-34) pg MCHC 34.3 (32-36) g/dl RDW 13.0 (11.5-14.5) % Plt Count 242 (150-375) k/mm3 MPV 9.9 (7.4-10.4) fl Immature Gran % (Auto) 0.1 (0-0.5) % Neut % (Auto) 81.5 H (45.5-73.1) % Lymph % (Auto) 6.9 L (18.3-44.2) % [place] % (Auto) 10.9 H (2.6-8.5) % Eos % (Auto) 0.1 (0-4.4) % Baso % (Auto) 0.5 (0.2-1.2) % Lymph # (Auto) 0.51 L (0.9-3.2) K/mm3 [place] # (Auto) 0.8 H (0.1-0.6) K/mm3 Eos # (Auto) 0.0 (0-0.3) K/mm3 Baso # (Auto) 0.0 (0.0-0.1) K/mm3 Abs Immat Gran (auto) 0.01 (0.00-0.031) K/mm3 Absolute Neuts (auto) 6.0 (1.3-6.7) K/mm3 Absolute Nucleated RBC 0.000 (0.0-0.012) K/mm3 Nucleated RBC % 0.0 (0.0-0.2) % PT 14.7 (11.1-14.7) Seconds INR 1.1 APTT 31.9 (22.3-36.8) Seconds Sodium 138 (137-145) mmol/L Potassium 3.4 (3.4-5.0) mmol/L Chloride 98 (98-107) mmol/L Carbon Dioxide 26 (22-30) mmol/L Anion Gap 14 H (4-12) mmol/L BUN 13 (9-20) mg/dL Creatinine 1.02 (0.7-1.3) mg/dL Estim Creat Clear Calc 85 ml/min Estimated GFR > 60 (59 - ) Glucose 123 H (65-110) mg/dL Calcium 9.5 (8.4-10.2) mg/dL Total Bilirubin 0.9 (0.2-1.3) mg/dL AST 27 (17-59) U/L ALT 35 (6-50) U/L Alkaline Phosphatase 63 (38-126) U/L Troponin I < 0.012 < 0.012 (0.000-0.034) ng/mL Total Protein 8.0 (6.3-8.2) g/dL Albumin 5.0 (3.5-5.1) g/dL Lipase 68 (23-300) U/L Influenza A (RT-PCR) Positive A (Negative) Influenza B (RT-PCR) Negative (Negative) RSV (RT-PCR) Negative (Negative) SARS-CoV-2 RNA (RT-PCR) Negative (Negative) Discharge Plan Discharge Clinical Impression: Chest wall pain, Influenza A Patient Disposition: Home, Self-Care Condition: Improved Instructions: Antibiotic Form, Influenza (ED), Chest Wall Pain (ED) Patient Language: [place] Prescriptions: No Action celecoxib [Celebrex] 200 mg capsule 200 mg PO BID Qty: 60 6RF acetaminophen [Tylenol Extra Strength] 500 mg tablet 500 mg PO Q6H duloxetine 60 mg capsule,delayed release(DR/EC) 60 mg PO DAILY Qty: 90 0RF trazodone 50 mg tablet See Rx Instructions .ROUTE .COMPLEX Qty: 90 3RF Dose Instruction: TAKE 1 TABLET BY MOUTH EVERY DAY AT BEDTIME NEEDED FOR INSOMNIA Rx Instructions: TAKE 1 TABLET BY MOUTH EVERY DAY AT BEDTIME NEEDED FOR INSOMNIA testosterone cypionate 200 mg/mL oil 150 mg IM WEEKLY Qty: 10 0RF Eliquis 5 mg tablet 5 mg PO BID 30 Days Qty: 60 0RF metoprolol succinate 25 mg tablet extended release 24 hr 25 mg PO DAILY Qty: 30 1RF benzonatate 100 mg capsule 100 mg PO TID PRN (Reason: cough) Qty: 30 0RF Follow-up/Referrals: Donn Lindquist MD [Primary Care Provider] -
[2024-07-14 07:41] LABS: Influenza A QL RT-PCR Positive (Negative); Influenza B QL RT-PCR Negative (Negative); RSV RNA, RT-PCR Negative (Negative); SARS-CoV-2 RNA PCR Negative (Negative)
[2024-07-14 08:31] LABS: INR 1.1; Prothrombin Time 14.7 Seconds (11.1-14.7)
[2024-07-14 08:32] LABS: Partial Thromboplastin Time 31.9 Seconds (22.3-36.8)
--- NOTE | 2024-07-14 09:33 | ECG_ITS ---
Test Date: 2024-07-14 09:47:18 Measurements Intervals [place] Rate: 90 P: 66 NV: 131 QRS: 53 QRSD: 94 T: 15 QT: 350 QTc: 430 Interpretive Statements SINUS RHYTHM POSSIBLE LEFT ATRIAL ENLARGEMENT [-0.1mV P WAVE IN V1/V2] NONSPECIFIC T-WAVE ABNORMALITY Compared to ECG 07/14/2024 06:49:15 No significant changes Electronically Signed On 07-15-2024 09:45:22 CURING OVEN TENDER by Leonel Penn M.D.
[2024-07-14 10:07] LABS: Troponin I < 0.012 ng/mL (0.000-0.034)
== END 2024-07-14 10:51 | disposition home or self-care (01) ==
PROVIDERS: Emergency Medicine; Emergency Provider Emergency Medicine; PCP Family Medicine
DX: J10.1 Influenza due to other identified influenza virus with other respiratory manifestations (principal); R07.9 Chest pain, unspecified; F17.290 Nicotine dependence, other tobacco product, uncomplicated
CPT/HCPCS: 36415; 71046; 80053; 83690; 84484; 85025; 85610; 85730; 87637; 93005; 99284

== ENCOUNTER 2024-08-29 22:42 | Emergency (ER) | payer OTHER, SELFPAY ==
--- NOTE | ~2024-08-29 | XR_ITS ---
EXAMINATION: XR chest 2V 08/29/2024 23:12 INDICATION: Dizziness and shortness of breath PROCEDURE: 2 view chest COMPARISON: 07/14/2024 FINDINGS: The lungs are clear. The cardiomediastinal silhouette is within normal limits. There are no pleural effusions. There is no pneumothorax suspected. IMPRESSION: 1: NO ACUTE CARDIOPULMONARY DISEASE. Reviewed, dictated and finalized at location A.
[2024-08-29 22:44] VITALS: BP 161/100; PULSE 74; RESP 16; TEMP 36.4; O2SAT 100
--- OUTSIDE RECORDS SUMMARY | 2024-08-29 22:44 | XMS_ITS | Encounter Summary ---
Author Organization [employer] Address 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
--- OUTSIDE RECORDS SUMMARY | 2024-08-29 22:44 | XMS_ITS | Clinical Summary ---
Author Organization [facility] [place] [facility] Address [address] [place] [address] Care Team Providers Care Hydraulic Press In Operator Name Role Phone Josh Lion MD Primary Care Provider Allergies No known active allergies Medications ibuprofen (ADVIL,MOTRIN) 200 mg tab/cap Take by mouth every 6 (six) hours as needed Active acetaminophen (TYLENOL) 500 mg tablet Take 1 tablet (500 mg total) by mouth every 6 (six) hours as needed Active melatonin 10 mg tablet Active protein supplement liquid Take by mouth Active doxylamine (UNISOM) 25 mg tablet Take 0.5 tablets (12.5 mg total) by mouth nightly as needed for sleep (anxiety) 30 tablet 2 Active traZODone (DESYREL) 50 mg tabletIndicati ons:Primary insomnia TAKE 1 TABLET(50 MG) BY MOUTH EVERY NIGHT NEEDED FOR SLEEP 30 tablet 2 2 Active LORazepam (ATIVAN) 0.5 mg tabletIndicati ons:Panic disorder Take 1 tablet (0.5 mg total) by mouth 3 (three) times a day as needed for anxiety (panic) 10 tablet 2 Active Additional Information Patient not taking.Reported on 08/04/2024 naproxen (ALEVE) 220 mg tablet Take by mouth 2 (two) times a day with meals Active escitalopram (LEXAPRO) 10 mg tabletIndicati ons:Panic disorder TAKE 1 TABLET(10 MG) BY MOUTH DAILY 30 tablet 3 3 Active Additional Information Patient not taking.Reported on 08/04/2024 sulfamethoxazo le-trimethopri m (BACTRIM DS) 800-160 mg per tablet Take 1 tablet by mouth every 12 (twelve) hours for 10 days 5 Active testosterone cypionate (DEPO-TESTOTER ONE) 200 mg/mL injection 5 Active metoprolol XL (TOPROL-XL) 25 mg extended release tablet Take 1 tablet (25 mg total) by mouth daily 90 tablet 3 5 08/05/19 26 Active Eliquis 5 mg tablet Take 1 tablet (5 mg total) by mouth 2 (two) times a day 5 08/05/19 25 Discontin ued(Thera py completed ) metoprolol XL (TOPROL-XL) 25 mg extended release tablet Take 1 tablet (25 mg total) by mouth daily 5 08/05/19 25 Discontin ued(Reord er) Active Problems Problem Noted Date Diagnosed Date Encounter to establish care 05/22/2021 Assessment & Plan (05/27/2021 12:32 PM STAVE BLOCK SPLITTER): A initial well visit to establish care [...] Encounters Date Type Department Care Team Description 08/04/2024 10:30 AM CDT Office Visit [facility] Medical [facility] Cardiology [address] [place] [address] Leonel Penn MD Paroxysmal atrial fibrillation (HCC) (Primary Dx) 07/02/[address] [facility] Medical [facility] Cardiology [address] [place] [address] Leonel Penn MD HFU from Last 3 [...] Used Date Smoking Tobacco: Former Cigarettes 1 - 2019 Vaping Smokeless Tobacco: Never Tobacco Cessation:Counseling [...] staff should administer the PHQ-9) 0 02/19/2022 [facility] - Occupational [...] Exercise per Session Not on file 05/22/2021 Education Answer Date Recorded What is the highest level of school you have completed or the highest degree you have received? 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 file Not on file Not on file Obstetrics History Last Filed Vital Signs Vital Sign Reading Time Taken Comments Blood Pressure 112/68 08/04/2024 10:21 AM CDT Pulse 80 08/04/2024 10:21 AM CDT Temperature 36.9 C (98.4 F) 02/19/2022 10:17 AM CDT Respiratory Rate 18 02/19/2022 10:17 AM CDT Oxygen Saturation 97% 08/04/2024 10:21 AM CDT Inhaled Oxygen Concentration - - Weight 75.8 kg (167 lb) 08/04/2024 10:21 AM CDT Height 175.3 cm (5' 9 ) 08/04/2024 10:21 AM CDT Body Mass Index 24.66 08/04/2024 10:21 AM CDT Plan of Treatment Health Maintenance Due Date Last Done Comments Hepatitis C Screening 1981 Varicella Vaccines (1 of 2 - 13+ 2-dose series) 1994 Hepatitis B Screening 1999 Regular Well Visit/Exam 18-64 05/22/2022 05/22/2021 Depression Screening 02/19/2023 02/19/2022, 12/18/2021, 11/20/2021, Additional history exists Covid-19 Vaccine ( - season) 2024 08/15/2020 Influenza Vaccine (Season Ended) 2025 03/28/2018 DTaP/Tdap/Td Vaccine (2 - Td or Tdap) 2028 2018 HPV Vaccines Aged Out No longer eligi ble based on patient's age to complete this topic Pneumococcal vaccine <65 Aged Out No longer eligible based on patient's age to complete this topic Procedures Procedure Name Priority Date/Time Associated Diagnosis Comments POCT LIPID PANEL Routine 08/04/2024 10:1 6 AM CDT Paroxysmal atrial fibrillation (HCC) ELECTROCARDIOGRAM REPORT Routine 08/04/2024 Paroxysmal atrial fibrillation (HCC) from Last 3 Months Results * POCT lipid panel (08/04/2024 10:16 AM CDT) Cholesterol, POC 131 mg/dL HDL, POC 26 mg/dL Triglycerides, POC 186 mg/dL LDL Cholesterol POC 68 mg/dL Chol/HDL Ratio, POC 2.7 Non-HDL Cholesterol, POC 105 mg/dL Cholesterol Total, POC 131 mg/dL Capillary blood 08/04/2024 1 0:16 AM CDT Leonel Penn MD POINT OF CARE TEST ORDERABLES Fi nal Result * Electrocardiogram Report (08/04/2024) 08/04/2024 Leonel Penn MD ECG ORDERABLES Final Result from Last 3 Months Insurance Care Teams Hydraulic Press In Operator Relationship Specialty Start Date End Date Josh Lion MD PCP - General Family Medicine 05/22/21
--- OUTSIDE RECORDS SUMMARY | 2024-08-29 22:44 | XMS_ITS | Data Portability ---
Author Organization [facility] [employer], Main Office Address [address] [place] [address] Care Team Providers Care Icer Machine Name Role Phone SHERWIN DOLL Primary Care Provider [phone] SHERWIN DOLL Referring Provider Assessment Encounter Date Assessment Date Assessment LastModified by Organization Details LastModified Time 08/24/2024 08/24/2024 This note is dictated and transcribed by [employer]. Social Scientist variances may occur. Despite proofreading, typographical errors may occur. Occasional wrong-word or '[id number]' substitutions may have occurred due to the inherent limitations of voice recording. Read the chart carefully and recognize, using context, where substitutions have occurred. [email or web address] Not available 08/24/2024 10:14:14 Plan of Treatment Reminders Order Date Submit Date Provider Last Modified By Organization Details Last Modified Time Details Appointments None recorded. Lab None recorded. Referral None recorded. Procedures None recorded. Surgeries None recorded. Imaging US, doppler, arterial 2024 025 [facility] (Radiology), [address] [place], [address], 5 10:05:22 ankle brachial index 2024 025 [facility] (One Call Scheduling), [address] [place], [address], 5 10:05:23 Medication Orders None recorded. Patient TargetsNo targets recorded. Patient InstructionsNo instructions recorded. Reason for Referral None Reported. Problems Name Problem SNOMED Code Status Onset Date Resolution Date Notes Provider Name and Address Organization Details Recorded Time Peripheral arterial occlusive disease 126111588 Active 2024 Brian Talbert DPM [address], [address], [place], [address], [employer] 5 10:13:32 Electronic cigarette user 671762974 Active 2024 Brian Talbert DPM [address], [address], [place], [address], [employer] 5 10:13:52 Ex-cigarett e smoker 589002235 Active 2024 Brian Talbert DPM [address], [place], [address], [employer] 5 10:13:53 Bilateral ingrowing nail of toe of feet 8141429863917 9102 Active 2024 Brian Talbert DPM [address], [place], [address], [employer] 10:14:45 Congenital pes planus 60798227 Active 2024 Brian Talbert DPM [address], [place], [address], [employer] 10:14:58 Problem Notes None recorded. Procedures Surgical History Date Name Laterality Status Provider Name and Address Organization Details Recorded Time procedure on elbow completed Deena Sanon [employer] [facility] [employer] 08/24/2024 10:17:40 Knee Surgery completed Deena Sanon [employer] 08/24/2024 10:17:47 Imaging Results None recorded. Procedure Notes None recorded. Medical Equipment None Reported. Allergies No known drug allergies Medications Name Sig Start Date Stop Date Status Note LastModified by Organization Details LastModified Time trazodone 50 mg tablet TAKE 1 TABLET BY MOUTH EVERY DAY AT BEDTIME NEEDED FOR INSOMNIA active Not Available Not Available No t Available sulfamethoxa zole 800 mg-trimethop rim 160 mg tablet TAKE 1 TABLET BY MOUTH EVERY 12 HOURS FOR 10 DAYS active Not Available Not Available Not Available benzonatate 100 mg capsule TAKE 1 CAPSULE BY MOUTH THREE TIMES DAILY NEEDED FOR COUGH active Not Available Not Available No t Available mupirocin 2 % topical ointment APPLY TOPICALLY TO THE AFFECTED AREA TWICE DAILY NEEDED FOR RASH active Not Available Not Available No t Available metoprolol succinate ER 25 mg tablet,exten ded release 24 hr TAKE 1 TABLET BY MOUTH DAILY active Not Available Not Available Not Available testosterone cypionate 200 mg/mL intramuscula r oil ADMINISTER 1 ML IN THE MUSCLE EVERY 2 WEEKS active Not Available Not Available No t Available ibuprofen active Not Available Not Kamryn ilable Not Available doxylamine succinate active Not Available Not Available No t Available Eliquis 5 mg tablet TAKE 1 TABLET BY MOUTH TWICE DAILY active Not Available Not Available No t Available Vitals Date Recorded Body height Body mass index (BMI) Body weight Provider Name and Address Organization Details Last Updated DateTime 08/24/2024 177.8 cm 24.4 kg/m2 89423.7 g Agata John [facility] [employer] [facility] 08/24/2024 10:00:44 Date Recorded Heart rate Respiratory rate Oxygen saturation Oxygen saturation in Arterial blood by Pulse oximetry Systolic blood pressure Diastolic blood pressure Provider Name and Address Organization Details Last Updated DateTime 79 /min 14 /min 99 % 99 % 129 mm[Hg] 91 mm[Hg] Deena Sanon [facility] [employer] [facility] 10:02:27 Social History Question Answer Notes LastModified by Organizat ion Details LastModified Time Tobacco Smoking Status Former Smoker Deena kitchen [facility] [employer] [facility] 08/24/2024 10:17:28 What Is Your Level Of Alcohol Consumption? None Information not available 08/24/2024 If You Are , What Was Your Level Of Alcohol Consumption Prior To ? None Information not available 08/24/2024 What Is Your Level Of Caffeine Consumption? None Information not available 08/24/2024 What Was The Date Of Your Most Recent Tobacco Screening? 08/24/2024 Information not available 08/24/2024 Do You Use Any Illicit Or Recreational Drugs? No Information not available 08/24/2024 Has Tobacco Cessation Counseling Been Provided? No Information not available 08/24/2024 Do You Or Have You Ever Used Any Other Forms Of Tobacco Or Nicotine? No Information not available 08/24/2024 Sex: Unknown Functional Status None recorded. Mental Status None recorded. Family History Relationship Description Onset Age of this Age Resolved Age Notes LastModified by Organization Details LastModified Time Mother Family history of stroke Not available 2024 10:16:19 Mother Arthritis Not available 08/24/2024 10:16:30 Mother Malignant neoplastic disease Not available 2024 10:16:58 Father Arthritis Not available 08/24/2024 10:16:30 Father Hypertensive disorder Not available 2024 10:16:40 Father Malignant neoplastic disease Not available 2024 10:16:58 Medical History Condition Response ARTHRITIS Y CARDIAC ARRHYTHMIA Y HEADACHES/MIGRAINES Y USE OF BLOOD THINNERS Y ANXIETY DISORDER Y ALLERGIES/HAYFEVER Y USE OF NSAIDS Y DEPRESSION (INCLUDING POST ) Y Gynecological HistoryNo gynecological history recorded. Obstetrics History GPAL:G 0 P 0 0 0 0 Past Encounters Encounter ID Performer Location Encounter Start Date Encounter Closed Date Diagnosis/Indication Diagnosis SNOMED-CT Code Diagnosis ICD10 Code Diagnosis Note [id number] Brian Talbert DPM [facility] [address] [place] [address] 08/24/2024 09:56:23 08/27/2024 08:40:37 Peripheral arterial occlusive disease 514670609 I73.9 bilateral feet Ex-cigarette smoker 6610 78883 Z87.891 15 year history Electronic cigarette user 229694411 Z72.89 current userrecomm end discontinu e use Bilateral ingrowing nail of toe of feet 9864845158 3019936 L60.0 bilateral borders both great toesrecent ly finished antibiotic s orally for right great toe infection which has resolvedPa tient has mild incurvated toenails without infectiond iscussed treatment options in detailPati ent will obtain non-invasi ve vascular testing to ensure adequate healing secondary to history of smoking and intermitte nt claudicati onfollow-u p for procedure pending testing, planned partial matrixecto my bilateral great toes both borders Congenital pes planus 23 307926 Q66.51 Q66.52 recommend [employer] low arch orthoticsr ecommend supportive shoe gear Health Concerns Section Related Observation LastModified by Organization Detai ls LastModified Time None Recorded Concern Status LastModified by Organization Details LastModified Time None Recorded Advance Directives Directive None Recorded Payers Encounter Date Sequence Insurance Name Policy Number Policy Tyler Covered Member ID Tyler Member ID Guarantor Name 08/24/2024 1 [facility] - DOS ON OR AFTER 2020 - DUAL ELIGIBLE (MEDICARE REPLACEMENT/ ADVANTAGE - HMO) Tio Fuith [id number] Tio Martínez Notes Date Note Type Note Provider Name and Address Organization Details Recorded Time 08/24/2024 text/html . Patient is a 44-year-old male who presents the office with complaints of foot pain secondary to flat feet and ingrown toenails worse to the right foot. patient states that he finished oral antibiotics for the right great toe infection. Patient states he continues have mild discomfort in both toes but denies any redness swelling or drainage. Patient states he currently vapes hand he is an ex smoker of 15 years. Patient states that he does have a lot of problems keeping his feet warm and will get cramping. Patient denies any history of non-healing wounds to the feet. Patient denies any other complaints. Brian Talbert, MARIA T [address] [facility], [facility] [address], [place], [address], [facility] [employer] 08/24/2024 10:20:23 OBGyn Episode No OBEpisode recorded.
--- OUTSIDE RECORDS SUMMARY | 2024-08-29 22:44 | XMS_ITS | Clinical Summary ---
Author Organization [employer] [facility] Address [address] [facility] [address] Mazariegos: Epic Prelude ADT JANIYA FISCHER [address] Care Team Providers Care Jet Dyeing Machine Tender Name Role Phone Unavailable Primary Care Provider Unavailabl e Social History Tobacco Use Types Packs/Day Years Used Date Smoking Tobacco: Never Assessed Sex and Gender Information Value Date Recorded Sex Assigned at Not on file Legal Sex Male 5:33 AM CYTOGENETICIST Gender Identity Not on file Sexual Orientation [...]
--- OUTSIDE RECORDS SUMMARY | 2024-08-29 22:44 | XMS_ITS | Referral Summary ---
Author Organization [facility] [place] [facility] Address [address] [place] [address] Care Team Providers Care Manufacturing Controller Name Role Phone Josh Lion MD Primary Care Provider Encounters Date Type Department Care Team Description 08/04/2024 10:30 AM CDT Office Visit [facility] Cardiology [address] [place] [phone] Leonel Penn MD Paroxysmal atrial fibrillation (HCC) (Primary Dx) 07/02/2024 Telephone [facility] Cardiology [address] [facility] [address] [place] [phone] Leonel Penn MD HFU from Last [...] 05/22/2021 Assessment & Plan (05/27/2021 12:32 PM CORPORATE TREASURER): A initial well visit to establish care has been performed today. Tio Jad FuTanya is up to date on screening tests. 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
--- NOTE | 2024-08-29 22:46 | ECG_ITS ---
Test Date: 2024-08-29 22:51:27 Measurements Intervals [place] Rate: 71 P: 73 MI: 162 QRS: 48 QRSD: 94 T: 13 QT: 382 QTc: 416 Interpretive Statements SINUS RHYTHM WITH SINUS ARRHYTHMIA POSSIBLE LEFT ATRIAL ENLARGEMENT NONSPECIFIC ST-T WAVE ABNORMALITY- INFERIOR LEADS BASELINE ARTIFACT- I, III, AVR, AVL, V4-V6 BORDERLINE ECG Compared to ECG 07/14/2024 09:47:18 No significant changes Electronically Signed On 08-30-2024 07:37:02 CDT by Jovanni Smyth D.O.
[2024-08-30] VITALS (10 sets, daily range): BP systolic 110–120; BP diastolic 79–88; PULSE 57–75; RESP 12–18; TEMP 36.4; O2SAT 95–100
--- OUTSIDE RECORDS SUMMARY | 2024-08-30 00:41 | XMS_ITS | Clinical Summary ---
Author Organization [facility] Address [address] [facility] [address] Mazariegos: Epic Prelude ADT JANIYA FISCHER [address] Care Team Providers Care Inset Cutter Name Role Phone Unavailable Primary Care Provider Unavailabl e Social History Tobacco Use Types Packs/Day Years Used Date Smoking Tobacco: Never Assessed Sex and Gender Information Value Date Recorded Sex Assigned at Not on file Legal Sex Male 5:33 AM CERAMIC PAINTER Gender Identity Not on file Sexual Orientation [...]
--- OUTSIDE RECORDS SUMMARY | 2024-08-30 00:41 | XMS_ITS | Referral Summary ---
Author Organization [facility] Address [address] [place] [address] Care Team Providers Care Negative Checker Name Role Phone Josh Lion MD Primary Care Provider Encounters Date Type Department Care Team Description 08/04/2024 10:30 AM CDT Office Visit [facility] Medical Group Cardiology [address] [place] [phone] Leonel Penn MD Paroxysmal atrial fibrillation (HCC) (Primary Dx) 07/02/[address] 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
--- OUTSIDE RECORDS SUMMARY | 2024-08-30 00:41 | XMS_ITS | Clinical Summary ---
Author Organization [facility] Address [address] [place] [address] Care Team Providers Care It Systems Engineer Name Role Phone Josh Lion MD Primary [...] 05/22/2021 Assessment & Plan (05/27/2021 12:32 PM SCRIPT ARTIST): A initial well visit to establish care [...] Description 08/04/2024 10:30 AM CDT Office Visit [facility] Medical [facility] Cardiology [address] [place] [address] Leonel Penn MD Paroxysmal atrial fibrillation (HCC) (Primary Dx) 07/02/2024 Telephone [facility] Medical [facility] Cardiology [address] [place] [address] Leonel Penn MD HFU from Last 3 [...] staff should administer the PHQ-9) 0 02/19/2022 [facility] - [...] on file Legal Sex Male 8:52 PM SCRIPT ARTIST Gender Identity Not on file Sexual Orientation Straight 05/22/2021 11 :53 AM SCRIPT ARTIST 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
--- OUTSIDE RECORDS SUMMARY | 2024-08-30 00:41 | XMS_ITS | Encounter Summary ---
Author Organization [employer] Address [address] [place] [address] Care Team Providers Care Boiler Washer Name Role Phone Unavailable Primary Care Provider Unavailabl e Encounter Details Date Type Department Care Team (Late st Contact Info) Description 09/11/2007 Outpatient [facility] Evangelista Schuler MD [address] [facility] [address] [place] [address] Social History Tobacco Use Types Packs/Day Years Used Date Smoking Tobacco: Never Assessed Sex and Gender Information Value Date Recorded Sex Assigned at Not on file Legal Sex Male 5:33 AM INTERNET SALES MANAGER Gender Identity Not on file Sexual Orientation Not on file documented as of this encounter Plan of Treatment Not on file documented as of this encounter Visit Diagnoses Not on filedocumented in this encounter
[2024-08-30 00:50] LABS: Basophils Absolute Auto 0.1 K/mm3 (0.0-0.1); Basophils Percent Auto 0.5 % (0.2-1.2); Eosinophils Absolute Auto 0.1 K/mm3 (0-0.3); Eosinophils Percent Auto 0.8 % (0-4.4); Hematocrit 45.1 % (42.0-52.0); Hemoglobin 15.3 g/dL (14.0-18.0); Immature Granulocyte Absolute 0.04 K/mm3 (0.00-0.031); Immature Granulocyte Percent A 0.3 % (0-0.5); Lymphocytes Percent Auto 16.6 % (18.3-44.2); Mean Corpuscular HGB Conc 33.9 g/dl (32-36); Mean Corpuscular Hemoglobin 29.9 pg (26-34); Mean Corpuscular Volume 88.1 fl (80-100); Mean Platelet Volume 9.9 fl (7.4-10.4); Monocytes Absolute Auto 0.7 K/mm3 (0.1-0.6); Monocytes Percent Auto 5.9 % (2.6-8.5); Neutrophils Absolute Auto 9.1 K/mm3 (1.3-6.7); Neutrophils Percent Auto 75.9 % (45.5-73.1); Platelet Count Result 216 k/mm3 (150-375); Red Blood Count 5.12 M/mm3 (4.6-6.20); Red Cell Distribution Width 12.8 % (11.5-14.5)
[2024-08-30 00:52] LABS: Add Urine Microscopic? NO; Appearance Urine Clear (Clear); Bilirubin Urine Negative (Negative); Blood Urine Negative (Negative); Color Urine Yellow (Yellow); Glucose Urine UA Negative (Negative); Ketones Urine Negative (Negative); Leukocyte Esterase Ur Negative LEU/UL (Negative); Nitrate Urine Negative (Negative); Protein Urine Negative (Negative); Specific Grav Ur 1.006 (1.001-1.035); Urobilinogen Urine 0.2 mg/dL (<2.0)
[2024-08-30 00:59] LABS: Alanine Aminotransferase 52 U/L (6-50); Albumin Level 4.8 g/dL (3.5-5.1); Alkaline Phosphatase 70 U/L (38-126); Anion Gap 10 mmol/L (4-12); Aspartate Amino Transferase 36 U/L (17-59); Bilirubin,Total 0.7 mg/dL (0.2-1.3); Blood Urea Nitrogen 19 mg/dL (9-20); Calcium 9.4 mg/dL (8.4-10.2); Carbon Dioxide 29 mmol/L (22-30); Chloride 100 mmol/L (98-107); Estimated CRCL calculation 77 ml/min; Estimated Glomerular Filt Rate > 60; Glucose 102 mg/dL (65-110); Potassium 4.2 mmol/L (3.4-5.0); Sodium 139 mmol/L (137-145)
[2024-08-30 01:00] LABS: Magnesium 2.1 mg/dL (1.6-2.3)
--- NOTE | 2024-08-30 01:17 | ED.GENADULT ---
HPI - General Adult General Chief complaint: Unspecified Stated complaint: Light headed, chills, High BP Time Seen by Provider: 08/30/24 00:30 History of Present Illness HPI narrative: Patient is a 44-year-old male who presents emergency department this evening complaining of an elevated blood pressure. Patient states that his blood pressure was 150-160 systolic at home which is unusual for him. He does take metoprolol for an elevated blood pressure but states that his blood pressure is always controlled with his medications. Admits that he does take his medications on time. Patient states that he did have an episode where he felt off today, slightly lightheaded and had some numbness and tingling to his bilateral arms and feet. Patient states that this is what prompted him to check his blood pressure. Since patient has been in the emergency department he states that all of the symptoms have resolved. Patient's current blood pressure is 126/84 mm Hg which patient states is what his normal blood pressure is. He is currently denying any active symptoms including chest pain or shortness of breath, nausea vomiting or abdominal pain, denies any recent illness, fevers or chills. There are no other modifying, alleviating, or precipitating factors at this time. Related Data Home Medications ?Medication ?Instructions ?Recorded ?Confirmed ?Last Taken ?Type acetaminophen 500 mg tablet 500 mg PO Q6H 09/11/22 07/31/24 Unknown History (Tylenol Extra Strength) Allergies Allergy/AdvReac Type Severity Reaction Status Date / Time No Known Allergies Allergy Verified 08/29/24 22:43 Review of Systems Review of Systems: All systems are reviewed and are negative unless stated otherwise in the HPI. [facility], LAT[facility] Past Medical History Medical History Swelling of knee Low testosterone in male Right ACL tear Low libido Right knee pain Encounter for screening for other viral diseases Bilateral hip pain Back pain Scalp psoriasis Psoriatic arthritis BMI 24.0-24.9, adult Surgical History Surgical History H/O elbow surgery H/O knee surgery Family History Family History Father Hypertension Hyperlipemia Malignant neoplasm of prostate Mother Cerebrovascular accident Skin cancer Social History Social History Smoking packs per day: 1 Smoking cigarettes per day: 20.0 Years smoked: 15 Smoking pack-years: 15.00 Smoking status: Current every day smoker Tobacco type: e-cigarettes/vaping Second hand tobacco smoke exposure: No Smoking end date: 05/13/12 Additional smoking assessment comments: former cigarette smoker, current vaper Alcohol intake: former Substance use: current Substance use type: marijuana Last use: 07/01/24 Do You Feel Safe in your Home?: Yes Lack of Transportation: No Lack of Food: Never True Current Housing: I Have Housing Concerned About Future Housing: No Difficulty Paying Gas/Electric Bills: No Difficulty Paying for Meds: No Currently Unemployed: No Education: High School Diploma/GED Difficulty w/ Childcare or Family Care: No Living arrangements: with family Occupation/Education: occupation Additional occupation/education comments: [employer]-currently not working due to pain standing and arthritis in hands. Gender identity (if verbalized by the patient): Male Spiritual care concerns: No Exam Narrative: General: Alert, awake, afebrile, in no acute distress. HEENT: PERRL, no rhinorrhea, no post nasal drip, oropharynx clear. Neck: Trachea midline, no JVD, no lymphadenopathy. Cardiovascular: Regular rate and rhythm, no murmurs, rubs or gallops, no peripheral edema. Respiratory: Clear to auscultation bilaterally, no tachypnea, no wheezing, no rhonchi, no rubs, no respiratory distress. Abdomen: Soft, nontender, nondistended, no rebound, no guarding, no peritoneal signs. Musculoskeletal: No joint swelling or deformity, normal muscle tone. Skin: No rashes or petechia, no signs of infection. Psychiatric: Alert and oriented, normal behavior and judgment for situation. Neurological: Alert and oriented to person, place, and time. Follows all commands. No focal deficits, speech is clear and fluent. Course Vital Signs Vital signs: Vital Signs Temperature 97.5 F L 08/29/24 22:44 Pulse Rate 74 08/29/24 22:44 Respiratory Rate 16 08/29/24 22:44 Blood Pressure 161/100 H 08/29/24 22:44 Pulse Oximetry 100 08/29/24 22:44 Oxygen Delivery Room Air 08/29/24 22:44 Temperature 97.5 F L 08/29/24 22:44 Pulse Rate 59 L 08/30/24 00:42 Respiratory Rate 16 08/29/24 22:44 Blood Pressure 161/100 H 08/29/24 22:44 Pulse Oximetry 100 08/29/24 22:44 Oxygen Delivery Room Air 08/29/24 22:44 Medical Decision Making MDM Narrative Medical decision making narrative: The patient was evaluated by myself in the emergency department. History is obtained from patient who is an independent historian and physical exam was performed. External medical records were reviewed at this time. IV was established and pertinent tests were ordered. EKG was obtained which revealed sinus rhythm rate of 71 beats per minute, no evidence of acute ischemia. EKG was independently interpreted by me and is currently pending official cardiology read. Laboratory results obtained revealing no acute process. Urinalysis unremarkable. Imaging studies obtained included CXR which was independently interpreted by me revealing no acute cardiopulmonary process, which is pending final radiology interpretation. Differential diagnosis considerations include acute viral syndrome, dehydration, infectious process such as pneumonia/urinary tract infection. Comorbidities impacting this visit include none. I have evaluated and discussed social determinants of health with the patient that could potentially impact subsequent diagnosis and treatment plans. On repeat assessment of the patient, reevaluation revealed that the patient is doing well and is in no acute distress. Patient symptoms have improved since he arrived to our emergency department. Repeat vital signs were all reviewed and noted to be stable. Differential diagnosis and treatment plan were discussed with the patient at bedside. Patient agrees with discussion and after shared medical decision making agrees with discharge. All questions were answered to the patient's satisfaction. Patient will follow up with his PCP in 3-5 days. Patient was instructed to monitor his blood pressure at by checking it twice, same time every day in the morning same time every day at night and to keep a blood pressure log and to take this with to his next family doctor's appointment. Patient was provided with strict return precautions and instructed to return to the emergency department if any new or worsening symptoms develop. The patient was discharged in stable condition. Vital Signs Vital Signs: Vital Signs Temperature 97.5 F L 08/29/24 22:44 Pulse Rate 74 08/29/24 22:44 Respiratory Rate 16 08/29/24 22:44 Blood Pressure 161/100 H 08/29/24 22:44 Pulse Oximetry 100 08/29/24 22:44 Oxygen Delivery Room Air 08/29/24 22:44 Temperature 97.5 F L 08/29/24 22:44 Pulse Rate 59 L 08/30/24 00:42 Respiratory Rate 16 08/29/24 22:44 Blood Pressure 161/100 H 08/29/24 22:44 Pulse Oximetry 100 08/29/24 22:44 Oxygen Delivery Room Air 08/29/24 22:44 Lab Data 08/30/24 00:43 08/30/24 00:43 Labs: Lab Results 08/30/24 Range/Units 00:43 WBC 12.0 H (4.5-10.0) K/mm3 RBC 5.12 (4.6-6.20) M/mm3 Hgb 15.3 (14.0-18.0) g/dL Hct 45.1 (42.0-52.0) % MCV 88.1 (80-100) fl MCH 29.9 (26-34) pg MCHC 33.9 (32-36) g/dl RDW 12.8 (11.5-14.5) % Plt Count 216 (150-375) k/mm3 MPV 9.9 (7.4-10.4) fl Immature Gran % (Auto) 0.3 (0-0.5) % Neut % (Auto) 75.9 H (45.5-73.1) % Lymph % (Auto) 16.6 L (18.3-44.2) % [place] % (Auto) 5.9 (2.6-8.5) % Eos % (Auto) 0.8 (0-4.4) % Baso % (Auto) 0.5 (0.2-1.2) % Lymph # (Auto) 2.00 (0.9-3.2) K/mm3 [place] # (Auto) 0.7 H (0.1-0.6) K/mm3 Eos # (Auto) 0.1 (0-0.3) K/mm3 Baso # (Auto) 0.1 (0.0-0.1) K/mm3 Abs Immat Gran (auto) 0.04 H (0.00-0.031) K/mm3 Absolute Neuts (auto) 9.1 H (1.3-6.7) K/mm3 Absolute Nucleated RBC 0.000 (0.0-0.012) K/mm3 Nucleated RBC % 0.0 (0.0-0.2) % Sodium 139 (137-145) mmol/L Potassium 4.2 (3.4-5.0) mmol/L Chloride 100 (98-107) mmol/L Carbon Dioxide 29 (22-30) mmol/L Anion Gap 10 (4-12) mmol/L BUN 19 (9-20) mg/dL Creatinine 1.13 (0.7-1.3) mg/dL Estim Creat Clear Calc 77 ml/min Estimated GFR > 60 (59 - ) Glucose 102 (65-110) mg/dL Calcium 9.4 (8.4-10.2) mg/dL Magnesium 2.1 (1.6-2.3) mg/dL Total Bilirubin 0.7 (0.2-1.3) mg/dL AST 36 (17-59) U/L ALT 52 H (6-50) U/L Alkaline Phosphatase 70 (38-126) U/L Total Protein 8.0 (6.3-8.2) g/dL Albumin 4.8 (3.5-5.1) g/dL Urine Color Yellow (Yellow) Urine Appearance Clear (Clear) Urine pH 6.0 (5.0-9.0) Ur Specific [place] 1.006 (1.001-1.035) Urine Protein Negative (Negative) mg/dL Urine Glucose (UA) Negative (Negative) mg/dL Urine Ketones Negative (Negative) mg/dL Ur Blood (Man) Negative (Negative) Urine Nitrate Negative (Negative) Urine Bilirubin Negative (Negative) Urine Urobilinogen 0.2 (<2.0) mg/dL Leukocyte Esterase Rfl Negative (Negative) ZION/UL Discharge Plan Discharge Clinical Impression: Hypertension Patient Disposition: Home Condition: Improved Instructions: Antibiotic Form, Hypertension (ED) Additional Instructions: Please follow-up with your family doctor within the next 3-5 days. Return to emergency department if any new or worsening symptoms develop. Monitor your blood pressure at home and keep a blood pressure log as you may need to have your blood pressure medications were adjusted if they are persistently high. Patient Language: Vincentian Prescriptions: No Action celecoxib [Celebrex] 200 mg capsule 200 mg PO BID Qty: 60 6RF mupirocin [Centany] 2 % ointment 1 applic topical BID PRN (Reason: rash) Qty: 15 2RF acetaminophen [Tylenol Extra Strength] 500 mg tablet 500 mg PO Q6H duloxetine 60 mg capsule,delayed release(DR/EC) 60 mg PO DAILY Qty: 90 0RF trazodone 50 mg tablet See Rx Instructions .ROUTE .COMPLEX Qty: 90 3RF Dose Instruction: TAKE 1 TABLET BY MOUTH EVERY DAY AT BEDTIME NEEDED FOR INSOMNIA Rx Instructions: TAKE 1 TABLET BY MOUTH EVERY DAY AT BEDTIME NEEDED FOR INSOMNIA testosterone cypionate 200 mg/mL oil 150 mg IM WEEKLY Qty: 10 0RF Eliquis 5 mg tablet 5 mg PO BID 30 Days Qty: 60 0RF metoprolol succinate 25 mg tablet extended release 24 hr 25 mg PO DAILY Qty: 30 1RF Follow-up/Referrals: Donn Lindquist MD [Primary Care Provider] - 3 Days Time of Disposition: 01:22
== END 2024-08-30 01:41 | disposition home or self-care (01) ==
PROVIDERS: Emergency Provider Emergency Medicine; PCP Family Medicine
DX: I10 Essential (primary) hypertension (principal); L40.50 Arthropathic psoriasis, unspecified; L40.9 Psoriasis, unspecified; F17.290 Nicotine dependence, other tobacco product, uncomplicated; R94.31 Abnormal electrocardiogram [ECG] [EKG]
CPT/HCPCS: 36415; 71046; 80053; 81003; 83735; 85025; 93005; 99284

== ENCOUNTER 2024-10-06 07:46 | Outpatient (CLI) | payer OTHER, SELFPAY ==
--- OUTSIDE RECORDS SUMMARY | 2024-10-06 07:50 | XMS_ITS | Clinical Summary ---
Author Organization [facility] Address [address] 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
--- OUTSIDE RECORDS SUMMARY | 2024-10-06 07:50 | XMS_ITS | Referral Summary ---
Author Organization [facility] [address] Address [address] [place] [phone] Care Team Providers Care Cost Consultant Name Role Phone Donn Lindquist MD Primary Care Provider [phone] Encounters Date Type Department Care Team Description 09/18/2024 3:00 PM CDT Office Visit [facility] Cardiology [address] [place] [address] [address] [place] [phone] Pat Renteria NP Paroxysmal atrial fibrillation (HCC) (Primary Dx); History of tachycardia; Elevated blood pressure reading without diagnosis of hypertension 08/04/2024 10:30 AM CDT Office Visit [facility] Cardiology [address] [place] [address] [phone] Leonel Penn MD Paroxysmal atrial fibrillation (HCC) (Primary Dx) from Last 3 Months Allergies No known active allergies Medications ibuprofen (ADVIL,MOTRIN) 200 mg tab/cap Take by mouth every 6 (six) hours as needed Active acetaminophen (TYLENOL) 500 mg tablet Take 1 tablet (500 mg total) by mouth every 6 (six) hours as needed Active doxylamine (UNISOM) 25 mg tablet Take 0.5 tablets (12.5 mg total) by mouth nightly as needed for sleep (anxiety) 30 tablet 2 Active traZODone (DESYREL) 50 mg tabletIndicatio ns:Primary insomnia TAKE 1 TABLET(50 MG) BY MOUTH EVERY NIGHT NEEDED FOR SLEEP 30 tablet 2 2 Active testosterone cypionate (DEPO-TESTOTERO NE) 200 mg/mL injection 5 Active metoprolol XL (TOPROL-XL) 25 mg extended release tablet Take 1 tablet (25 mg total) by mouth daily 90 tablet 3 5 08/05/19 26 Active melatonin 10 mg tablet 09/19/19 25 Discontinue d(No longer taking - Do not display on AVS) protein supplement liquid Take by mouth 09/19/19 25 Discontinue d(No longer taking - Do not display on AVS) LORazepam (ATIVAN) 0.5 mg tabletIndicatio ns:Panic disorder Take 1 tablet (0.5 mg total) by mouth 3 (three) times a day as needed for anxiety (panic) 10 tablet 2 09/19/19 25 Discontinue d(No longer taking - Do not display on AVS) naproxen (ALEVE) 220 mg tablet Take by mouth 2 (two) times a day with meals 09/19/19 25 Discontinue d(No longer taking - Do not display on AVS) escitalopram (LEXAPRO) 10 mg tabletIndicatio ns:Panic disorder TAKE 1 TABLET(10 MG) BY MOUTH DAILY 30 tablet 3 3 09/19/19 25 Discontinue d(No longer taking - Do not display on AVS) sulfamethoxazol e-trimethoprim (BACTRIM DS) 800-160 mg per tablet Take 1 tablet by mouth every 12 (twelve) hours for 10 days 5 09/19/19 25 Discontinue d(No longer taking - Do not display on AVS) Active Problems Problem Noted Date Diagnosed Date Encounter to establish care 05/22/2021 Assessment & Plan (05/27/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): A initial well visit to establish care [...] Vaping Smokeless Tobacco: Never Tobacco Cessation:Counseling Given: Not Answered Humiliation, Afraid, Rape, and Kick questionnair e [...] staff should administer the PHQ-9) 0 02/19/2022 [facility] - Occupational Stress Questionnaire Answer Date Recorded [...] on file Legal Sex Male 8:52 PM CLAMP TRUCK DRIVER Gender Identity Not on file Sexual Orientation Straight 05/22/2021 11 :53 AM CLAMP TRUCK DRIVER 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) Not on file Not on file Not on file Last Filed Vital Signs Vital Sign Reading Time Taken Comments Blood Pressure 120/80 09/18/2024 2:54 PM CDT Pulse 81 09/18/2024 2:54 PM CDT Temperature 36.9 C (98.4 F) 02/19/2022 10:17 AM CDT Respiratory Rate 18 02/19/2022 10:17 AM CDT Oxygen Saturation 97% 09/18/2024 2:54 PM CDT Inhaled Oxygen Concentration - - Weight 73 kg (161 lb) 09/18/2024 2:54 PM CDT Height 175.3 cm (5' 9 ) 09/18/2024 2:54 PM CDT Body Mass Index 23.78 09/18/2024 2:54 PM CDT Plan of Treatment Not on file [...] Final Result from Last 3 Months Insurance [facility] Care Teams Cost Consultant Relationship Specialty Start Date End Date Donn Lindquist MD [address] [place] [address] PCP - General Family Medicine 09/18/24
--- OUTSIDE RECORDS SUMMARY | 2024-10-06 07:50 | XMS_ITS | Clinical Summary ---
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): A initial well visit to establish care [...] Description 09/18/2024 3:00 PM CDT Office Visit [facility] Cardiology [address] [place] [phone] Pat Renteria NP Paroxysmal atrial fibrillation (HCC) (Primary Dx); History of tachycardia; Elevated blood pressure reading without diagnosis of hypertension 08/04/2024 10:30 AM CDT Office Visit [facility] Cardiology [address] [place] [phone] Leonel Penn MD Paroxysmal atrial fibrillation (HCC) (Primary Dx) from Last 3 Months Immunizations Immunization Administration [...] staff should administer the PHQ-9) 0 02/19/2022 [facility] - Occupational Stress [...] on file 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
--- OUTSIDE RECORDS SUMMARY | 2024-10-06 07:50 | XMS_ITS | Encounter Summary ---
Author Organization [employer] Address 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
--- OUTSIDE RECORDS SUMMARY | 2024-10-06 07:50 | XMS_ITS | Data Portability ---
Author Organization [place] [facility], Main Office Address [address] [place] [address] Care Team Providers Care Framing Mill Operator Helper Name Role Phone SHERWIN DOLL Primary Care Provider [phone] SHERWIN DOLL Referring Provider Assessment Encounter Date Assessment Date Assessment LastModified by Organization Details LastModified Time 08/24/2024 08/24/2024 This note is dictated and transcribed by [employer]. [employer] Workers variances may occur. Despite proofreading, typographical errors may occur. Occasional wrong-word or 'lrdyv-e-noew' substitutions may have occurred due to the inherent limitations of voice recording. Read the chart carefully and recognize, using context, where substitutions have occurred. [email or web address] Not available 08/24/2024 10:14:14 Plan of Treatment Reminders Order Date Submit Date Provider Last Modified By Organization Details Last Modified Time Details Appointments Procedure 15 2024 03:00P Fatmata Talbert DPM Not available Not available Not available Lab None recorded. Referral None recorded. Procedures None recorded. Surgeries None recorded. Imaging US, doppler, arterial 2024 025 [facility] [place] (Radiology), [address] [place], [address], 08/31/2024 11:27:14 ankle brachial index 2024 025 [email or web address] [facility] ([facility] Scheduling), [address] [place], [address], 09/15/2024 09:02:10 Medication Orders None recorded. Patient TargetsNo targets recorded. Patient InstructionsNo instructions recorded. Reason for Referral None Reported. Results Created Date Observation Date Name Description Value Unit Range Abnormal Flag Note LastModifiedBy Organization Detail LastModifiedTime 09/01/19 25 08/28/2024 US, doppl er, arter ial No observ ation record ed. [email or web address] [facility] (Radiology) [address] [place], [address], 08/31/2024 15:21:17 Result Notes None recorded. Problems Name Problem SNOMED Code Status Onset Date Resolution Date Notes Provider Name and Address Organization Details Recorded Time Peripheral arterial occlusive disease 763511878 Active 2024 Brian Talbert DPM [address] [facility] [facility] [address], [place], [address], [employer] 5 10:13:32 Electronic cigarette user 319302554 Active 2024 Brian Talbert DPM [address] [facility] [facility] [address], [place], [address], [employer] 10:13:52 Ex-cigarett e smoker 098629109 Active 2024 Brian Talbert DPM [address] [address], [place], [address], [employer] 10:13:53 Bilateral ingrowing nail of toe of feet 6644077699578 9102 Active 2024 Brian Talbert DPM [address] [facility], [address] [address], [place], [address], [employer] 10:14:45 Congenital pes planus 64479048 Active 2024 Brian Talbert DPM [address] [facility], [address] [address], [place], [address], [employer] 10:14:58 Problem Notes None recorded. Procedures Surgical History Date Name Laterality Status Provider Name and Address Organization Details Recorded Time procedure on elbow completed Deena Sanon [employer] 08/24/2024 10:17:40 Knee Surgery completed Deena Sanon [employer] 08/24/2024 10:17:47 Imaging Results None recorded. Procedure [...] Updated DateTime 08/24/2024 177.8 cm 24.4 kg/m2 17038.7 g Agata John [employer] [facility] 08/24/2024 10:00:44 Date Recorded Heart rate Respiratory rate Oxygen saturation Oxygen saturation in Arterial blood by Pulse oximetry Systolic And Diastolic Provider Name and Address Organization Details Last Updated DateTime 79 /min 14 /min 99 % 99 % 129/91 mm[Hg] Deena Sanon [place] [employer] [facility] 10:02:27 Social History Question Answer Notes LastModified by Organizat ion Details LastModified Time Tobacco Smoking Status Former Smoker Deena kitchen [employer] [facility] 08/24/2024 10:17:28 If You Are , What Was Your Level Of Alcohol Consumption Prior To ? None Information not available 08/24/2024 What Is Your Level Of Caffeine Consumption? None Information not available 08/24/2024 What Was The Date Of Your Most Recent Tobacco Screening? 08/24/2024 Information not available 08/24/2024 Has Tobacco Cessation Counseling Been Provided? No Information not available 08/24/2024 Sex: Unknown Functional Status Question Answer Note LastModified by Organizat ion Details LastModified Time Do you use any illicit or recreational drugs? No Information not available 08/24/2024 Do you or have you ever used any other forms of tobacco or nicotine? No Information not available 08/24/2024 What is your level of alcohol consumption? None Information not available 08/24/2024 Mental Status None recorded. Family History Relationship [...] available 2024 10:16:58 Medical History Condition Response CARDIAC ARRHYTHMIA Y ARTHRITIS Y HEADACHES/MIGRAINES Y ANXIETY DISORDER Y USE OF BLOOD THINNERS Y ALLERGIES/HAYFEVER Y USE OF NSAIDS Y DEPRESSION (INCLUDING POST ) Y Gynecological HistoryNo gynecological history recorded. Obstetrics History GPAL:G 0 P 0 0 0 0 Past Encounters Encounter ID Performer Location Encounter Start Date Encounter Closed Date Diagnosis/Indication Diagnosis SNOMED-CT Code Diagnosis ICD10 Code Diagnosis Note [id number] Brian Talbert DPM [facility] [place] [address] [place] [address] 08/24/2024 09:56:23 08/27/2024 08:40:37 Peripheral arterial occlusive disease 290113316 I73.9 bilateral feet Ex-cigarette smoker 9022 62124 Z87.891 15 year history Electronic cigarette user 095612862 Z72.89 current userrecomm end discontinu e use Bilateral ingrowing nail of toe of feet 9749084157 8688940 L60.0 bilateral borders both great toesrecent ly [...] toes both borders Congenital pes planus 23 889718 Q66.51 Q66.52 recommend [employer] [place] low arch orthoticsr ecommend supportive shoe gear Health Concerns Section Related Observation LastModified by Organization Detai ls LastModified Time None Recorded Concern Status LastModified by Organization Details LastModified Time None Recorded Advance Directives Directive None Recorded Payers Encounter Date Sequence Insurance Name Policy Number Policy Tyler Covered Member ID Tyler Member ID Guarantor Name 08/24/2024 1 [facility] - DOS ON OR AFTER 2020 - DUAL ELIGIBLE (MEDICARE REPLACEMENT/ ADVANTAGE - HMO) Tio Martínez [id number] Tio Martínez Notes Date Note Type Note [...] other complaints. Brian Talbert, MARIA T [address] [facility] [facility] [address], [place], [address], [facility] [employer] [facility] 08/24/2024 10:20:23 OBGyn Episode No OBEpisode recorded.
--- OUTSIDE RECORDS SUMMARY | 2024-10-06 07:50 | XMS_ITS | CONTINUITY OF CARE DOCUMENT ---
Author Name coral moncada Address Unknown Organization [facility] Address [address] [place] [address] Phone [phone] Care Team Providers Care Bend Sorter Name Role Phone Amrit Burton MD Unavailable [phone] Amrit Burton MD Unavailable [phone] INSURANCE PROVIDERS Payer name Policy type / Coverage type Jayson red constitution party ID [employer] MEDICA[employer] (2) Medicaid [id number]
[2024-10-06 08:15] LABS: Basophils Absolute Auto 0.1 K/mm3 (0.0-0.1); Basophils Percent Auto 1.2 % (0.2-1.2); Eosinophils Absolute Auto 0.1 K/mm3 (0-0.3); Eosinophils Percent Auto 1.6 % (0-4.4); Hematocrit 48.2 % (42.0-52.0); Hemoglobin 16.2 g/dL (14.0-18.0); Immature Granulocyte Absolute 0.01 K/mm3 (0.00-0.031); Immature Granulocyte Percent A 0.2 % (0-0.5); Lymphocytes Absolute Auto 1.76 K/mm3 (0.9-3.2); Lymphocytes Percent Auto 35.7 % (18.3-44.2); Mean Corpuscular HGB Conc 33.6 g/dl (32-36); Mean Corpuscular Hemoglobin 29.6 pg (26-34); Mean Corpuscular Volume 88.1 fl (80-100); Mean Platelet Volume 10.1 fl (7.4-10.4); Monocytes Absolute Auto 0.4 K/mm3 (0.1-0.6); Monocytes Percent Auto 8.7 % (2.6-8.5); Neutrophils Absolute Auto 2.6 K/mm3 (1.3-6.7); Neutrophils Percent Auto 52.6 % (45.5-73.1); Platelet Count Result 241 k/mm3 (150-375); Red Blood Count 5.47 M/mm3 (4.6-6.20); Red Cell Distribution Width 13.1 % (11.5-14.5); White Blood Count 4.9 K/mm3 (4.5-10.0)
[2024-10-06 09:19] LABS: Alanine Aminotransferase 34 U/L (6-50); Albumin Level 4.7 g/dL (3.5-5.1); Alkaline Phosphatase 54 U/L (38-126); Anion Gap 5 mmol/L (4-12); Aspartate Amino Transferase 35 U/L (17-59); Bilirubin,Total 0.9 mg/dL (0.2-1.3); Blood Urea Nitrogen 16 mg/dL (9-20); Calcium 9.4 mg/dL (8.4-10.2); Carbon Dioxide 32 mmol/L (22-30); Chloride 103 mmol/L (98-107); Cholesterol 183 mg/dL (0-200); Estimated Glomerular Filt Rate > 60; Glucose 81 mg/dL (65-110); HDL Direct 38 mg/dL; Potassium 3.8 mmol/L (3.4-5.0); Sodium 140 mmol/L (137-145); Triglycerides 82 mg/dL (<150)
[2024-10-06 09:30] LABS: LDL Cholesterol Direct 98 mg/dL
[2024-10-06 09:56] LABS: Prostate Specific Antigen 0.6 ng/mL (< OR = 4.0)
[2024-10-08 02:24] LABS: TSH QUEST 1.19 mIU/L (0.40-4.50)
== END 2024-10-06 07:47 | disposition home or self-care (01) ==
PROVIDERS: PCP Family Medicine; Referring Provider Nurse Practitioner Adult Health; Visit Provider Physician Assistant Medical
DX: M79.671 Pain in right foot (principal); M79.672 Pain in left foot; G89.29 Other chronic pain; R79.89 Other specified abnormal findings of blood chemistry; L40.50 Arthropathic psoriasis, unspecified; Z12.5 Encounter for screening for malignant neoplasm of prostate; E78.5 Hyperlipidemia, unspecified; I48.0 Paroxysmal atrial fibrillation
CPT/HCPCS: 36415; 80053; 80061; 84153; 84402; 84403; 84439; 84443; 84480; 85025; 86376; G0103

== ENCOUNTER 2025-03-11 08:12 | Outpatient (CLI) | payer OTHER, SELFPAY ==
--- NOTE | ~2025-03-11 | XR_ITS ---
EXAMINATION: XR shoulder LT min 2V, 03/11/2025 8:22 CDT HISTORY: M25.512 - Pain in left shoulder COMPARISON: No comparisons available. Findings: No acute fracture or malalignment. No significant degenerative changes. Soft tissues unremarkable. Impression: No acute fracture or malalignment. Reviewed, dictated and finalized at location P. Impression: No acute fracture or malalignment.
--- OUTSIDE RECORDS SUMMARY | 2025-03-11 08:18 | XMS_ITS | Encounter Summary ---
Author Organization [employer] Address 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
--- OUTSIDE RECORDS SUMMARY | 2025-03-11 08:18 | XMS_ITS | Clinical Summary ---
Author Organization [employer] [facility] [place] Address [address] 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
--- OUTSIDE RECORDS SUMMARY | 2025-03-11 08:18 | XMS_ITS | Clinical Summary ---
Author Organization [facility] [address] Address [address] [place] [address] Care Team Providers Care Derrick Boat Runner Name Role Phone Donn Lindquist MD Primary Care Provider [phone] Allergies No known active allergies Medications ibuprofen [...] FOR SLEEP 30 tablet 2 12/27/2021 Active testosterone cypionate (DEPO-TESTOTERO NE) 200 mg/mL injection 07/06/2024 Active metoprolol XL (TOPROL-XL) 25 mg extended release tablet Take 1 tablet (25 mg total) by mouth daily 90 tablet 3 08/04/2024 Active Active Problems Problem Noted Date Diagnosed Date Encounter to establish care 05/22/2021 Assessment & Plan (05/27/2021 12:32 PM LOSS PREVENTION ASSOCIATE): A initial well visit to establish care [...] should administer the PHQ-9) 0 02/19/2022 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) Not on file Not on file [...] 2:54 PM CDT Height 175.3 cm (5' 9) 09/18/2024 2:54 PM CDT Body Mass Index 23.78 09/18/2024 2:54 PM CDT Plan of Treatment Health Maintenance Due Date Last Done Comments Hepatitis C Screening 1981 Varicella Vaccines (1 of 2 - 13+ 2-dose series) 1994 Hepatitis B Screening 1999 HPV Vaccines (1 - 3-dose SCDM series) 2008 Regular Well Visit/Exam 18-64 05/22/2022 05/22/2021 Depression Screening 02/19/2023 02/19/2022, 12/18/2021, 11/20/2021, Additional history exists Covid-19 Vaccine ( - 2024- season) 2025 08/15/2020 Influenza Vaccine (#1) 2025 03/28/2018 DTaP/Tdap/Td Vaccine (2 - Td or Tdap) 2028 2018 Pneumococcal vaccine <65 Aged Out No longer eligible based on patient's age to complete this topic Insurance [facility] Care Teams Derrick Boat Runner Relationship Specialty Start Date End Date Donn Lindquist MD [address] [place] [address] PCP - General Family Medicine 09/18/24
== END 2025-03-11 08:13 | disposition home or self-care (01) ==
PROVIDERS: PCP Family Medicine; Visit Provider Nurse Practitioner Family
DX: M25.512 Pain in left shoulder (principal)
CPT/HCPCS: 73030

== ENCOUNTER 2025-04-15 16:10 | Emergency (ER) | payer OTHER, SELFPAY ==
[2025-04-15 16:12] VITALS: BP 139/105; PULSE 86; RESP 16; TEMP 36.4; O2SAT 100
--- NOTE | 2025-04-15 18:26 | ED.EYEPROB ---
HPI - Eye Problem General Chief complaint: Eye Problems Stated complaint: distilled vinegar splashed in bilateral eyes Time Seen by Provider: 04/15/25 16:21 History of Present Illness HPI Narrative: Patient presenting here with eye irritation, had actually splashed vinegar into his eyes while demonstrating an experiment in class, he did immediately wash his eyes out thoroughly, with eye wash, then at home and showered and washed his eyes out more. He read that there could be injuries to his eyes so came in here. He is no longer having any pain, just feels like his eyes are dry. Related Data Home Medications ?Medication ?Instructions ?Recorded ?Confirmed ?Last Taken ?Type acetaminophen 500 mg tablet 500 mg PO Q6H 09/11/22 03/08/25 Unknown History (Tylenol Extra Strength) Allergies Allergy/AdvReac Type Severity Reaction Status Date / Time No Known Allergies Allergy Verified 03/08/25 09:47 Review of Systems Review of Systems: All systems reviewed & are unremarkable except as noted in HPI and below PMFSH Past Medical History Medical History Hip pain Bilateral knee pain Ingrown nail of great toe Fatigue Syncope Chronic pain of both feet Low back pain Hand pain Paronychia due to ingrown nail Decreased free testosterone level in male Adverse effect of cannabis Encounter for wellness examination Shoulder pain, left Swelling of knee Low testosterone in male Right ACL tear Low libido Right knee pain Encounter for screening for other viral diseases Bilateral hip pain Back pain Scalp psoriasis Psoriatic arthritis BMI 24.0-24.9, adult Surgical History Surgical History H/O elbow surgery H/O knee surgery Family History Family History Father Hypertension Hyperlipemia Malignant neoplasm of prostate Mother Cerebrovascular accident Skin cancer Social History Social History Smoking packs per day: 1 Smoking cigarettes per day: 20.0 Years smoked: 15 Smoking pack-years: 15.00 Smoking status: Current every day smoker Tobacco type: e-cigarettes/vaping Second hand tobacco smoke exposure: No Smoking end date: 05/13/12 Additional smoking assessment comments: former cigarette smoker, current vaper Alcohol intake: former Substance use: current Substance use type: marijuana Last use: 07/01/24 Lack of Transportation: No Lack of Food: Never True Current Housing: I Have Housing Concerned About Future Housing: No Difficulty Paying Gas/Electric Bills: No Difficulty Paying for Meds: No Currently Unemployed: No Education: High School Diploma/GED Difficulty w/ Childcare or Family Care: No Living arrangements: with family Occupation/Education: occupation Additional occupation/education comments: [employer] industry-currently not working due to pain standing and arthritis in hands. Gender identity (if verbalized by the patient): Male Spiritual care concerns: No Exam Narrative: EXAMINATION OF ORGAN SYSTEMS/BODY AREAS: Constitutional: Vital signs per nursing GENERAL:[No acute distress, non-toxic appearing.] HEAD: Normal with no signs of head trauma. EYES: EOMI, conjunctiva normal, no fluorescein uptake ENT: Hearing grossly intact LUNGS: Nonlabored breathing. HEART: [Regular rate and rhythm] ABD: [Soft], [nontender to palpation] EXT: Normal range of motion SKIN: [No rashes or lesions.] NEURO: [Alert. No gross focal sensory or strength deficits.] PSYCH: Normal affect Course Vital Signs Vital signs: Vital Signs Temperature 97.5 F L 04/15/25 16:12 Pulse Rate 86 04/15/25 16:12 Respiratory Rate 16 04/15/25 16:12 Blood Pressure 139/105 H 04/15/25 16:12 Pulse Oximetry 100 04/15/25 16:12 Oxygen Delivery Room Air 04/15/25 16:12 Temperature 97.5 F L 04/15/25 16:12 Pulse Rate 86 04/15/25 16:12 Respiratory Rate 16 04/15/25 16:12 Blood Pressure 139/105 H 04/15/25 16:12 Pulse Oximetry 100 04/15/25 16:12 Oxygen Delivery Room Air 04/15/25 16:12 [facility] MDM Narrative Medical decision making narrative: Patient presenting here with eye irritation, had actually splashed vinegar into his eyes while demonstrating an experiment in class, he did immediately wash his eyes out thoroughly, with eye wash, then at home and showered and washed his eyes out more. He read that there could be injuries to his eyes so came in here. He is no longer having any pain, just feels like his eyes are dry. Well-appearing here, normal conjunctiva, no fluorescein uptake. Patient reassured, instructed to use artificial tears, follow up with access specialist as needed, return for any further issues. Differential Diagnosis Differential Diagnosis: chemical exposure, corneal abrasion, etc Discharge Plan Discharge Clinical Impression: Chemical exposure of eye Patient Disposition: Home Condition: Stable Instructions: Chemical Eye Perales (ED) Additional Instructions: Your eye exam today was quite benign. You can use artificial tears, if you have any further issues you can follow up with an access specialist. If you start having severe pain, changes to vision or anything else concerning, go to the ER. Patient Language: Beninese Prescriptions: No Action testosterone cypionate 200 mg/mL oil 150 mg IM WEEKLY Qty: 10 0RF cyclobenzaprine 10 mg tablet 10 mg PO QHS Qty: 30 0RF acetaminophen [Tylenol Extra Strength] 500 mg tablet 500 mg PO Q6H metoprolol succinate 25 mg tablet extended release 24 hr 25 mg PO DAILY Qty: 90 1RF trazodone 50 mg tablet See Rx Instructions .ROUTE .COMPLEX Qty: 90 3RF Dose Instruction: TAKE 1 TABLET BY MOUTH EVERY DAY AT BEDTIME NEEDED FOR INSOMNIA Rx Instructions: TAKE 1 TABLET BY MOUTH EVERY DAY AT BEDTIME NEEDED FOR INSOMNIA Follow-up/Referrals: Donn Lindquist MD [Primary Care Provider, Family Practice]
== END 2025-04-15 16:38 | disposition home or self-care (01) ==
PROVIDERS: Emergency Provider Emergency Medicine; PCP Family Medicine
DX: H57.89 Other specified disorders of eye and adnexa (principal); Z77.098 Contact with and (suspected) exposure to other hazardous, chiefly nonmedicinal, chemicals; L40.50 Arthropathic psoriasis, unspecified; F17.290 Nicotine dependence, other tobacco product, uncomplicated
CPT/HCPCS: 99283